=== PATIENT | female | born 1950 | race Caucasian/White ===

== ENCOUNTER 2017-11-17 14:58 | Emergency (ER) | payer OTHER ==
[2017-11-17 15:06] VITALS: BP 138/84; PULSE 76; TEMP 98.4; BMI 44.1
--- NOTE | 2017-11-17 15:48 | PDOC ---
History of Present Illness - General Chief Complaint: Diarrhea Stated Complaint: DIARRHEA Time Seen by Provider: 11/17/17 15:12 History Source: Patient Exam Limitations: No Limitations - History of Present Illness Travel History: No Initial Comments: 11/17/17 16:32 66 year old female with diarrhea since and September requiring her to see her PCP placing her on Levaquin, Flagyl, and antidiarrheal medication with minimal improvement presents with generalized mild weakness and continual diarrhea. Patient states was seen by Dr. Mercedes a few weeks ago who is recommending colonoscopy but patient states the physician feel she would operatives tolerate the prep secondary to present loose stool and generalized weakness. Patient denies fever, chills and states has had stool cultures, ova and paracenteses and C. difficile collected with negative results. Patient has no complaints presently except for generalized fatigue and diarrhea Timing/Duration: reports: intermittent Quality: reports: mild Pain Radiation: reports: no radiation Aggravating Factors: improves with: None Alleviating Factors: improves with: None Past History - Travel Traveled outside of the country in the last 30 days: No - Past Medical History Allergies/Adverse Reactions: Allergies Allergy/AdvReac Type Severity Reaction Status Date / Time No Known Allergies Allergy Verified 11/17/17 15:06 COPD: No Diabetes: Yes HTN: Yes - Surgical History Abdominal Surgery: Yes (hernia) - Suicide/Smoking/Psychosocial Hx Smoking History: Never smoked Patient Lives Alone: No Review of Systems - Review of Systems Able to Perform ROS?: No Constitutional: Yes: Weakness HEENTM: No: Symptoms Reported Respiratory: No: Symptoms reported Cardiac (ROS): No: Symptoms Reported ABD/GI: Yes: Diarrhea. No: Nausea, Poor Appetite, Poor Fluid Intake, Vomiting, Abdominal cramping Integumentary: No: Symptoms Reported Neurological: No: Symptoms reported Hematologic/Lymphatic: No: Symptoms Reported *Physical Exam - Vital Signs Last Vital Signs Temp Pulse Resp BP Pulse Ox 98.4 F 76 18 138/84 99 11/17/17 15:03 11/17/17 15:03 11/17/17 15:03 11/17/17 15:03 11/17/17 15:03 - Physical Exam General Appearance: Yes: Nourished, Appropriately Dressed. No: Apparent Distress HEENT: negative: Pale Conjunctivae Neck: positive: Supple Respiratory/Chest: positive: Lungs Clear, Normal Breath Sounds. negative: Respiratory Distress, Accessory Muscle Use Cardiovascular: positive: Regular Rhythm, Regular Rate. negative: Murmur Gastrointestinal/Abdominal: positive: Normal Bowel Sounds, Soft. negative: Distended, Tenderness Extremity: positive: Normal Capillary Refill. negative: Pedal Edema Integumentary: positive: Normal Color, Warm, Moist Neurologic: positive: Motor Strength 5/5 (ambulatory) ED Treatment Course - LABORATORY CBC & Chemistry Diagram: 11/17/17 16:14 11/17/17 16:14 Medical Decision Making - Medical Decision Making 11/17/17 16:00 Patient with intermittent daily diarrhea for the past 2 months. Patient is pending colonoscopy under Dr. Macias. Patient ordered for labs, urine, H pylori and repeat stool cultures. 11/17/17 17:52 Laboratory Tests 11/17/17 11/17/17 11/17/17 15:54 16:14 16:14 WBC 10.2 H Hgb 14.3 Hct 42.3 Absolute Neuts (auto) 6.0 Sodium 143 Potassium 4.7 Chloride 110 H Carbon Dioxide 23 Anion Gap 10 BUN 25 H Creatinine 1.2 H Creat Clearance w eGFR 44.81 Random Glucose 127 H Calcium 9.3 Magnesium 1.8 Total Bilirubin 0.2 AST 55 H ALT 70 Urine Nitrite Ur Leukocyte Esterase Urine WBC (Auto) Urine RBC (Auto) Stool H. pylori Ag Pending 11/17/17 17:00 WBC Hgb Hct Absolute Neuts (auto) Sodium Potassium Chloride Carbon Dioxide Anion Gap BUN Creatinine Creat Clearance w eGFR Random Glucose Calcium Magnesium Total Bilirubin AST ALT Urine Nitrite Negative Ur Leukocyte Esterase 3+ H Urine WBC (Auto) 85 Urine RBC (Auto) 6 Stool H. pylori Ag 11/17/17 18:[address] Mayo, product info specialist t and states is unaware patient coming to the ER for bowel prepping and is not on scheduled for a colonoscopy. Patient will be discharged home. Patient be given first dose of Macrobid here since her pharmacy is closed today prescription sent to begin tomorrow *DC/Admit/Observation/Transfer Diagnosis at time of Disposition: UTI (urinary tract infection), Diarrhea - Discharge Dispostion Disposition: HOME - Referrals Referrals: Shashank Staton MD [Primary Care Provider] - Angel Frances DO [Staff Physician] - - Patient Instructions Printed Discharge Instructions: DI for Urinary Tract Infection (UTI), DI for Diarrhea and Traveler's Diarrhea -- Adult Additional Instructions: Please take antibiotics starting tomorrow. Please call Dr. Frances in regards to days visit - Post Discharge Activity
--- NOTE | 2017-11-17 16:16 | PDOC ---
*Physical Exam - Vital Signs Last Vital Signs Temp Pulse Resp BP Pulse Ox 98.4 F 76 18 138/84 99 11/17/17 15:03 11/17/17 15:03 11/17/17 15:03 11/17/17 15:03 11/17/17 15:03 Medical Decision Making - Medical Decision Making 11/17/17 16:16 Case discussed with SIRIA Cruz. Plan as per [employer]. *DC/Admit/Observation/Transfer - Referrals Referrals: Shashank Staton MD [Primary Care Provider] - - Patient Instructions - Post Discharge Activity
[2017-11-17 16:43] LABS: BASO % 0.5 % (0-2.0); EOS % 2.3 % (0-4.5); HEMATOCRIT 42.3 % (32.4-45.2); HEMOGLOBIN 14.3 GM/dL (10.7-15.3); LYMPH % 28.5 % (8-40); MCH 30.8 pg (25.7-33.7); MCHC 33.7 g/dl (32.0-36.0); MEAN CELL VOLUME 91.6 fl (80-96); MEAN PLT VOLUME 9.6 fl (7.5-11.1); MONO % 9.9 % (3.8-10.2); NEUT % 58.8 % (42.8-82.8); PLATELET COUNT 303 K/MM3 (134-434); RBC 4.62 M/mm3 (3.60-5.2); RDW 14.3 % (11.6-15.6); WHITE BLOOD COUNT 10.2 K/mm3 (4.0-10.0)
[2017-11-17 17:09] LABS: ALBUMIN 3.9 g/dl (3.4-5.0); ALK PHOS 49 U/L (45-117); ANION GAP 10 MMOL/L (8-16); BILIRUBIN,TOTAL 0.2 mg/dL (0.2-1.0); BLOOD UREA NITROGEN 25 mg/dL (7-18); CALCIUM 9.3 mg/dL (8.5-10.1); CHLORIDE 110 mmol/L (98-107); CO2 23 mmol/L (21-32); CREATININE 1.2 mg/dL (0.55-1.02); GLUCOSE,RANDOM 127 mg/dL (74-106); LIPASE 174 U/L (73-393); SGPT/ALT 70 U/L (12-78); SODIUM 143 mmol/L (136-145); TOT PROT 7.2 g/dl (6.4-8.2)
[2017-11-17 17:12] LABS: MAGNESIUM 1.8 mg/dL (1.8-2.4); POTASSIUM 4.7 mmol/L (3.5-5.1); SGOT/AST 55 U/L (15-37)
[2017-11-17 17:14] LABS: URINE APPEARANCE SLCLOUDY; URINE BILIRUBIN NEGATIVE (<2.0 mg/dL); URINE COLOR YELLOW; URINE GLUCOSE (UA) NEGATIVE (NEGATIVE); URINE KETONE NEGATIVE (NEGATIVE); URINE NITRITE NEGATIVE (NEGATIVE); URINE PROTEIN NEGATIVE (NEGATIVE); URINE UROBILINOGEN NEGATIVE mg/dL (0.2-1.0)
[2017-11-17 17:15] LABS: URINE LEUK ESTERASE 3+ (NEGATIVE)
[2017-11-17 17:17] LABS: EPI CELLS RARE /HPF (FEW); URINE MUCUS RARE
[2017-11-17] MEDS ORDERED: NITROFURANTOIN MACROCRYSTAL 50 MG CAPSULE (FP) PO SCH (18:45)
[2017-11-17] MEDS ORDERED: NITROFURANTOIN MACROCRYSTAL 50 MG CAPSULE (FP) ONE (19:05)
--- NOTE | 2017-11-18 13:23 | EKG ---
Test Reason : Blood Pressure : / mmHG Vent. Rate : 073 BPM Atrial Rate : 073 BPM P-R Int : 152 ms QRS Dur : 080 ms QT Int : 400 ms P-R-T Axes : 051 002 033 degrees QTc Int : 440 ms NORMAL SINUS RHYTHM WITH SINUS ARRHYTHMIA POSSIBLE ANTERIOR INFARCT , AGE UNDETERMINED ABNORMAL ECG WHEN COMPARED WITH ECG OF 24-AUG-1999 08:58, NO SIGNIFICANT CHANGE WAS FOUND Confirmed by JAYLA DEMARCO MD ([id number]) on 11/18/2017 1:22:44 PM Referred By: Confirmed By:JAYLA DEMARCO MD
== END 2017-11-17 19:14 | disposition home or self-care (01) ==
LOC: JER 14:58
DX: N39.0 Urinary tract infection, site not specified (principal); R19.7 Diarrhea, unspecified; I10 Essential (primary) hypertension; E11.9 Type 2 diabetes mellitus without complications
CPT/HCPCS: 36415; 80053; 81003; 81015; 83690; 83735; 85025; 87045; 87046; 87086; 87338; 93005; 93010; 99281-25

== ENCOUNTER 2017-12-17 08:10 | Day surgery (SDC) | payer OTHER ==
[2017-12-17 08:54] VITALS: BMI 43.0
[2017-12-17 09:34] VITALS: TEMP 97.9
[2017-12-17 09:37] VITALS: PULSE 60
[2017-12-17 10:31] VITALS: BP 119/71
--- NOTE | 2017-12-19 09:57 | PATH ---
Surgical Pathology Report Patient Name: EBONIE SEN [facility]. Rec. #: [id number] /Age/Gender: 1950 (Age: 66) / F Account: [id number] Location: U-ENDOSCOPY Taken: 12/17/2017 Received: 12/17/2017 Reported: 12/19/2017 Physicians: Liang Frances D.O. Specimen(s) Received A: BX DUODENUM AND BULB B: BX BODY Clinical History Diarrhea Postoperative diagnosis: Gastritis, diarrhea Final Diagnosis A. DUODENUM AND BULB, BIOPSY: DUODENAL MUCOSA WITH MILD TO MODERATE ACUTE AND CHRONIC DUODENITIS. B. STOMACH, BODY, BIOPSY: GASTRIC BODY MUCOSA WITH MODERATE TO SEVERE CHRONIC ACTIVE GASTRITIS. IMMUNOHISTOCHEMICAL STAIN FOR H. PYLORI IS POSITIVE ([place]). Electronically Signed Allyson Campbell M.D. Gross Description A. Received in formalin, labeled "duodenum and bulb" are 5 santos, irregular portions of soft tissue measuring 0.1 and 0.2 cm. in greatest dimension. The specimens are submitted in toto in one cassette. B. Received in formalin, labeled "body of stomach" are multiple (>7) santos, irregular portions of soft tissue ranging in size from 0.1-0.3 cm. in greatest dimension. The specimens are submitted in toto in one cassette. MLSZ/12/17/2017 kenya/12/17/2017
[2017-12-20 16:30] LABS: ATYPICAL pANCA <1:20 titer (Neg:<1:20)
== END 2017-12-17 10:43 | disposition home or self-care (01) ==
LOC: JASU-ENDO 08:10
PROVIDERS: ATTEND Internal Medicine Gastroenterology
PROC: 0DB68ZX Excision of Stomach, Via Natural or Artificial Opening Endoscopic, Diagnostic (ICD-10-PCS; 2017-12-17)
PROC: 0DB98ZX Excision of Duodenum, Via Natural or Artificial Opening Endoscopic, Diagnostic (ICD-10-PCS; principal; 2017-12-17 09:00)
DX: K29.50 Unspecified chronic gastritis without bleeding (principal); K29.80 Duodenitis without bleeding; B96.81 Helicobacter pylori [H. pylori] as the cause of diseases classified elsewhere; I10 Essential (primary) hypertension; E11.9 Type 2 diabetes mellitus without complications; H40.9 Unspecified glaucoma
CPT/HCPCS: 36415; 86256; 86671; 88305-TC; 88342-TC

== ENCOUNTER 2018-02-19 09:42 | Day surgery (SDC) | payer OTHER ==
[2018-02-18 11:43] VITALS: BMI 42.8
[2018-02-19] MEDS ORDERED: MIDAZOLAM HCL 2 MG/2 ML SINGLE DOSE VIAL ONE (10:09)
[2018-02-19] MEDS ORDERED: LIDOCAINE HCL 2% (20ML MULTI-DOSE VIAL) NR ONE (10:25)
[2018-02-19 10:27] VITALS: TEMP 97.9
[2018-02-19 12:22] VITALS: BP 111/86; PULSE 61
[2018-02-19] MEDS ORDERED: oxyCODONE HCL 5 MG TABLET PO PRN (12:28)
[2018-02-19] MEDS ORDERED: ONDANSETRON 4 MG/2 ML VIAL IVPUSH PRN (12:28)
[2018-02-19] MEDS ORDERED: LACTATED RINGERS SOLUTION 1,000 ML IV SCH (12:30)
--- NOTE | 2018-02-20 11:14 | OP ---
DATE OF OPERATION: 02/19/2018 PREOPERATIVE DIAGNOSES: 1. Right carpal tunnel syndrome. 2. Right index trigger finger. POSTOPERATIVE DIAGNOSES: 1. Right carpal tunnel syndrome. 2. Right index trigger finger. OPERATIVE PROCEDURE: 1. Right carpal tunnel release. 2. Right index trigger finger release. SURGEON: Mark Tyler MD ANESTHESIA: Local with sedation. COMPLICATIONS: None. ESTIMATED BLOOD LOSS: Minimal. INDICATION FOR PROCEDURE: The patient is a 67-year-old female with the above finding indicated for operative treatment. Risks, benefits, and alternatives were discussed with the patient at length. Proper informed consent was obtained. PROCEDURE: After proper identification of patient and correct operative site, patient was brought to the operating room and placed supine on the operative table. Prominences were well padded. Sedation and local anesthesia were given. Right upper extremity was prepped and draped in usual sterile fashion. A well-padded tourniquet was placed as well as a sterile prep. Esmarch bandage was used to exsanguinate the right upper extremity. Tourniquet was inflated to 250 mmHg. A longitudinal incision was made in the proximal aspect of the palm. Incision was taken sharply through the skin with blunt and sharp dissection through the subcutaneous tissues. Palmar fascia was divided longitudinally. Transcarpal ligament was divided longitudinally along with the distal 4 cm of the antebrachial fascia under direct visualization with loupe magnification. This provided complete release of the median nerve at the wrist. Wound was irrigated with saline, repaired with a 5-0 nylon suture. Second incision was made over the A1 jalen to the index finger. Incision was taken sharply through the skin with blunt dissection down to the A1 jalen. The A1 jalen was identified and divided longitudinally. Patient was asked to flex and extend her finger. No further triggering was noted. Wound was irrigated and repaired with 5-0 nylon suture. Sterile dressings were applied. Patient was brought to the recovery room in stable condition. She tolerated procedure well. MARK TYLER M.D. [id number]
== END 2018-02-19 12:23 | disposition home or self-care (01) ==
LOC: FASU 09:42
PROVIDERS: ATTEND Orthopaedic Surgery Hand Surgery
PROC: 01N50ZZ Release Median Nerve, Open Approach (ICD-10-PCS; 2018-02-19)
PROC: 0LN70ZZ Release Right Hand Tendon, Open Approach (ICD-10-PCS; principal; 2018-02-19 11:23)
DX: G56.01 Carpal tunnel syndrome, right upper limb (principal); M65.321 Trigger finger, right index finger; I10 Essential (primary) hypertension; E11.9 Type 2 diabetes mellitus without complications; Z79.84 Long term (current) use of oral hypoglycemic drugs
CPT/HCPCS: 82962

== ENCOUNTER 2018-04-07 10:43 | Emergency (ER) | payer OTHER ==
[2018-04-07 10:59] VITALS: BMI 44.1
--- NOTE | 2018-04-07 11:53 | PDOC ---
History of Present Illness - General Chief Complaint: Pain Stated Complaint: ABD PAIN Time Seen by Provider: 04/07/18 11:43 History Source: Patient - History of Present Illness Timing/Duration: reports: other Quality: reports: severe Past History - Past Medical History Allergies/Adverse Reactions: Allergies Allergy/AdvReac Type Severity Reaction Status Date / Time No Known Allergies Allergy Verified 04/07/18 10:51 Home Medications: Ambulatory Orders Amlodipine Besylate [Norvasc -] 10 mg PO HS 11/22/17 Aspirin Coated [Ecotrin -] 81 mg PO DAILY 11/22/17 Atropine 1% Ophth. Solution - 0 drop .ROUTE DAILY 11/22/17 Clopidogrel Bisulfate [Plavix] 75 mg PO DAILY 11/22/17 Cyclosporine [Restasis] 1 each OP DAILY 11/22/17 Dorzolamide HCl/Timolol Maleat [Cosopt Eye Drops] 10 ml OP DAILY 11/22/17 Duloxetine HCl [Cymbalta] 60 mg PO DAILY 11/22/17 Gabapentin [Neurontin] 1,200 mg PO DAILY 11/22/17 Losartan Potassium [Cozaar] 100 mg PO DAILY 11/22/17 Metoprolol Succinate [Toprol Xl] 100 mg PO DAILY 11/22/17 Multivitamin [Daily Multiple Vitamin] 1 each PO DAILY 11/22/17 Travoprost [Travatan Z] 1 dose .ROUTE DAILY 11/22/17 metFORMIN HCL [Metformin ER Osmotic] 1,000 mg PO BID 11/22/17 Anemia: No Asthma: No Cancer: No (blood clot left retinal artery many years ago) Cardiac Disorders: No CVA: No COPD: No CHF: No Dementia: No Diabetes: Yes (NIDDM) GI Disorders: No Disorders: No HTN: Yes Hypercholesterolemia: No Liver Disease: No Seizures: No Thyroid Disease: No - Surgical History Abdominal Surgery: Yes (hernia repair) Appendectomy: No Cardiac Surgery: No Cholecystectomy: No Lung Surgery: No Neurologic Surgery: No Orthopedic Surgery: Yes (BilateralTHR) - Immunization History Immunization Up to Date: Yes - Suicide/Smoking/Psychosocial Hx Smoking History: Former smoker Have you smoked in the past 12 months: No If you are a former smoker, when did you quit?: 15 YRS AGO Information on smoking cessation initiated: No Hx Alcohol Use: No Drug/Substance Use Hx: No Substance Use Type: None Hx Substance Use Treatment: No Review of Systems - Review of Systems Constitutional: No: Chills, Fever ABD/GI: Yes: Constipated, Abdominal cramping. No: Diarrhea, Nausea, Rectal Bleeding, Vomiting, Tarry Stools : No: Dysuria *Physical Exam - Vital Signs Last Vital Signs Temp Pulse Resp BP Pulse Ox 70 20 157/69 97 04/07/18 10:51 04/07/18 10:51 04/07/18 10:51 04/07/18 10:51 - Physical Exam General Appearance: Yes: Appropriately Dressed, Mild Distress HEENT: positive: Normal Voice Neck: positive: Supple Respiratory/Chest: negative: Respiratory Distress Gastrointestinal/Abdominal: positive: Soft, Hernia (large umbilical hernia w/ significant ttp w/ mild palpation, unable to asssess if reducible) Musculoskeletal: negative: CVA Tenderness Integumentary: positive: Dry, Warm Neurologic: positive: Fully Oriented, Alert, Normal Mood/Affect Moderate Sedation - Procedure Monitoring Vital Signs: Procedure Monitoring Vital Signs Temperature Pulse Rate 70 04/07/18 10:51 Respiratory Rate 20 04/07/18 10:51 Blood Pressure 157/69 04/07/18 10:51 O2 Sat by Pulse Oximetry (%) 97 04/07/18 10:51 ED Treatment Course - LABORATORY CBC & Chemistry Diagram: 04/07/18 12:20 04/07/18 12:20 Medical Decision Making - Medical Decision Making 04/07/18 11:48 67 yo F, NIDDM, ventral hernia, currently on triple therapy for hpylori that was dx x 1 week, here w/ worsening lower abd cramping w/ constipation x 4 days. No BRBPR, melena, n/v/f/c, States she was told by Dr Hercules of GI to come to ED for eval. Pt states she saw a surgeon recently to discuss elective repair of her hernia and that Abi told her that she will need to have surgery soon per patient See exam R/o incarcerated hernia -pain control -IVF -labs -CT -anticipate admission 04/07/18 12:09 04/07/18 15:[address] pending. Of note, Pt's GFR 44 w/ Cr 1.2. Risk/benefit of administering IV contrast d/w pt who signed consent in my presence for IV administration 04/07/18 17:43 CT read as no significant change in hernia site with fat and part of mid transverse colon seen within hernia. No stranding or mesenteric fat. There is also a wide open hernia defect measuring about 3.5 cm. "There is a significant discrepancy in the amount of fecal debris seen prior to and post hernia w/ a moderate amount seen prior to the hernia and only a small amount distal to the hernia, unable to r/o partial obstruction. Pt does report being able to have a bowel movement in ED after hernia was reduced doing CAT scan. Will c/w surgery at this time 04/07/18 18:[address] Shyam Raymundo of surgery, who patient saw in the office within the past [address] report d/w who strongly recommends that due to pt's complicated hernia that she has a team approach to her procedure. States patient was seen by a plastic surgeon who MD referred pt to, and that pt now waiting for insurance approval for procedure. States if patient can be discharged, should continue to follow-up with him tomorrow. I discussed this with patient and also offered her observation or transfer, to which patient declines at this time. Patient states she would prefer for Dr. Raymundo to perform the procedure and feels comfortable going home to follow-up with M.D. Patient states since hernia was reduced in CAT scan she's had multiple bowel movements with no pain at this time. Pt has since been able to tolerate po. Patient was counseled on strict return precautions such as recurrent pain, constipation, blood in stool, nausea, vomiting or fever. *DC/Admit/Observation/Transfer Diagnosis at time of Disposition: Umbilical hernia Qualifiers: Obstruction and gangrene presence: without obstruction or gangrene Qualified Code(s): K42.9 - Umbilical hernia without obstruction or gangrene Abdominal pain Qualifiers: Abdominal location: unspecified location Qualified Code(s): R10.9 - Unspecified abdominal pain - Discharge Dispostion Disposition: HOME Condition at time of disposition: Improved - Referrals Referrals: Shashank Staton MD [Primary Care Provider] - - Patient Instructions Additional Instructions: The CAT scan showed a large hernia defect with some loops of bowels and most likely explains your constipation This is a complicated hernia and requires surgical intervention in the very near future We have discussed this with your surgeon whose preference is that you have a team approach to this procedure w/ the addition of a plastic surgeon who you have already consulted with Please follow up with your surgeons in the am If pain recurs and/or you developed recurrent constipation, nausea, vomiting or fever, please call 911 and return immediately - Post Discharge Activity
[2018-04-07 12:30] LABS: BASO % 0.8 % (0-2.0); HEMATOCRIT 42.8 % (32.4-45.2); HEMOGLOBIN 14.8 GM/dL (10.7-15.3); LYMPH % 17.9 % (8-40); MCH 32.1 pg (25.7-33.7); MCHC 34.7 g/dl (32.0-36.0); MEAN CELL VOLUME 92.5 fl (80-96); MEAN PLT VOLUME 8.7 fl (7.5-11.1); MONO % 6.9 % (3.8-10.2); NEUT % 72.4 % (42.8-82.8); PLATELET COUNT 301 K/MM3 (134-434); RBC 4.63 M/mm3 (3.60-5.2); RDW 13.3 % (11.6-15.6); WHITE BLOOD COUNT 12.2 K/mm3 (4.0-10.0)
[2018-04-07] MEDS ORDERED: morphine CARPU-JECT 4 MG/1 ML DISP.SYRIN IVPUSH ONE (12:45)
[2018-04-07] MEDS ORDERED: SODIUM CHLORIDE 500 ML IV STA (12:46)
[2018-04-07 13:06] LABS: ALBUMIN 4.3 g/dl (3.4-5.0); ALK PHOS 50 U/L (45-117); ANION GAP 9 MMOL/L (8-16); BILIRUBIN,TOTAL 0.5 mg/dL (0.2-1); BLOOD UREA NITROGEN 25 mg/dL (7-18); CALCIUM 9.8 mg/dL (8.5-10.1); CHLORIDE 103 mmol/L (98-107); CO2 26 mmol/L (21-32); CREATININE 1.2 mg/dL (0.55-1.3); GLUCOSE,RANDOM 113 mg/dL (74-106); POTASSIUM 4.8 mmol/L (3.5-5.1); SGOT/AST 30 U/L (15-37); SGPT/ALT 36 U/L (13-61); SODIUM 137 mmol/L (136-145); TOT PROT 7.8 g/dl (6.4-8.2)
[2018-04-07] MEDS ORDERED: morphine SULFATE 4 MG/ML VIAL ONE (13:24)
--- NOTE | 2018-04-07 15:23 | PDOC ---
*Physical Exam - Vital Signs Last Vital Signs Temp Pulse Resp BP Pulse Ox 70 20 157/69 97 04/07/18 10:51 04/07/18 10:51 04/07/18 10:51 04/07/18 10:51 - Physical Exam General Appearance: Yes: Nourished Neck: positive: Trachea midline Respiratory/Chest: positive: Lungs Clear, Normal Breath Sounds Cardiovascular: positive: Regular Rate, S1, S2, Edema Gastrointestinal/Abdominal: positive: Normal Bowel Sounds, Tender (tender over large ventral hernia. no rebound no guarding.) Musculoskeletal: positive: Normal Inspection. negative: CVA Tenderness, CVA Tenderness (R) Extremity: positive: Normal Capillary Refill, Normal Inspection Integumentary: positive: Normal Color, Dry, Warm Neurologic: positive: Fully Oriented, Alert, Normal Mood/Affect ED Treatment Course - LABORATORY CBC & Chemistry Diagram: 04/07/18 12:20 04/07/18 12:20 - ADDITIONAL ORDERS Additional order review: Laboratory Results 04/07/18 04/07/18 12:20 12:20 Sodium 137 Potassium 4.8 Chloride 103 Carbon Dioxide 26 Anion Gap 9 BUN 25 H Creatinine 1.2 Creat Clearance w eGFR 44.68 Random Glucose 113 H Calcium 9.8 Total Bilirubin 0.5 AST 30 ALT 36 Alkaline Phosphatase 50 Total Protein 7.8 Albumin 4.3 Blood Type A POSITIVE Antibody Screen Negative 04/07/18 12:20 RBC 4.63 MCV 92.5 MCHC 34.7 RDW 13.3 MPV 8.7 Neutrophils % 72.4 D Lymphocytes % 17.9 D Monocytes % 6.9 Eosinophils % 2.0 Basophils % 0.8 - Medications Given in the ED: ED Medications Discontinued Medications Generic Name Dose Route Start Last Admin Trade Name Freq PRN Reason Stop Dose Admin Sodium Chloride 500 mls @ 500 mls/hr 04/07/18 12:46 04/07/18 13:26 Normal Saline - IV 04/07/18 13:45 500 mls/hr ASDIR STA Administration Morphine Sulfate 4 mg 04/07/18 12:45 04/07/18 13:26 Morphine Injection - IVPUSH 04/07/18 12:46 4 mg ONCE ONE Administration Medical Decision Making - Medical Decision Making 67 yo F pt of dr pino here wtih /o recently diagnosed h pylori, ventral hernia, here with c/o lower abd pain. no n/v but does have constipation. hasn't had bm in 3 days. pain is constant, worse with pressure over the hernia. did see a surgeon dr Vega, one week ago. pain is severe, no mod factors. on exam pt with large hernia, nonreducible, ttp over hernia. differential constipation, mass, hernia, sbo debbie cl, plan labs ct w/p pt seen and examined with JOHN Pereyra, agree with her assessment and plan. 04/07/18 15:21 *DC/Admit/Observation/Transfer - Referrals Referrals: Shashank Staton MD [Primary Care Provider] - - Patient Instructions - Post Discharge Activity
[2018-04-07 16:09] LABS: URINE APPEARANCE SLCLOUDY; URINE BILIRUBIN NEGATIVE (<2.0 mg/dL); URINE COLOR YELLOW; URINE GLUCOSE (UA) NEGATIVE (NEGATIVE); URINE KETONE NEGATIVE (NEGATIVE); URINE LEUK ESTERASE 2+ (NEGATIVE); URINE NITRITE NEGATIVE (NEGATIVE); URINE PROTEIN NEGATIVE (NEGATIVE); URINE UROBILINOGEN NEGATIVE mg/dL (0.2-1.0)
[2018-04-07 16:43] LABS: EPI CELLS RARE /HPF (FEW); URINE MUCUS RARE
[2018-04-07 18:56] VITALS: BP 142/77; PULSE 64
== END 2018-04-07 18:54 | disposition home or self-care (01) ==
LOC: JER 10:43
PROC: 3E033NZ Introduction of Analgesics, Hypnotics, Sedatives into Peripheral Vein, Percutaneous Approach (ICD-10-PCS; principal; 2018-04-07)
DX: K42.9 Umbilical hernia without obstruction or gangrene (principal); I10 Essential (primary) hypertension; E11.9 Type 2 diabetes mellitus without complications; Z79.84 Long term (current) use of oral hypoglycemic drugs
CPT/HCPCS: 36415; 74177-TC; 80053; 81003; 81015; 85025; 86850; 86900; 86901; 96374; 99282-25

== ENCOUNTER 2019-03-30 11:07 | Day surgery (SDC) | payer OTHER ==
[2019-03-30 11:42] LABS: HEMATOCRIT 41.9 % (32.4-45.2); MCH 31.5 pg (25.7-33.7); MCHC 33.5 g/dl (32.0-36.0); MEAN PLT VOLUME 8.3 fl (7.5-11.1); PLATELET COUNT 280 K/MM3 (134-434); RBC 4.46 M/mm3 (3.60-5.2); RDW 14.2 % (11.6-15.6); WHITE BLOOD COUNT 9.4 K/mm3 (4.0-10.0)
[2019-03-30 11:56] LABS: INR 0.9 (0.83-1.09); PROTHROMBIN TIME (PATIENT) 10.6 SEC (9.7-13.0)
[2019-03-30 11:59] LABS: ACTIVATED PTT 30.2 SECONDS (25.2-36.5)
[2019-03-30 12:02] LABS: BLOOD UREA NITROGEN 43.8 mg/dL (7-18); CALCIUM 10.1 mg/dL (8.5-10.1); CREATININE 1.6 mg/dL (0.55-1.3); POTASSIUM 4.9 mmol/L (3.5-5.1)
[2019-03-30 12:07] VITALS: BMI 49.8
[2019-03-30] MEDS ORDERED: LIDOCAINE VISCOUS 2% ORAL/TOP 20 ML UNIT-DOSE CUP ONE (12:25)
[2019-03-30 13:29] VITALS: TEMP 97.8
[2019-03-30 13:47] VITALS: PULSE 60
[2019-03-30 14:27] VITALS: BP 104/49
--- NOTE | 2019-03-30 15:34 | ECHO ---
Name: FRANCY, EBONIE Exam:Transesophageal Echocardiogram Study Date: 03/30/2019 12:54 PM Age: 68 yrs Height: 67 in Weight: 310 lb BSA: 2.4 m2 Procedure: A 2D transesophageal echocardiogram with color flow Doppler was performed. Informed consent for Transesophageal Echocardiogram, and use of a contrast agent as needed, was obtained prior to the proc edure. The patient was brought to the endoscopy suite in a fasting state. An intravenous line was placed. A topical anesthetic agent was used for oropharangeal anesthesia. A bite block was inserted. IV concious sedati on was administered using propafol. A multifrequency, multiplane transesopheageal echocardiographic endoscop e was inserted and manipulated in the standard fashion to achieve multiplane views. The usual views were ob tained; basal, mid-esophageal, transgastric and aortic views. The patient's vital signs, including blood pres sure, heart rate, pulse oximetry and cardiac rhythm were monitored throughout the procedure and remained st able. The patient tolerated the procedure well without evidence of orophangeal or esophageal trauma. There were no complications. The patient was in normal sinus rhythm during the exam. Left Ventricle The left ventricle is normal in size. Left ventricular systolic function is normal. No regional wall motion abnormalities noted. Atria The left atrial size is normal. No left atrial mass or thrombus visualized. No thrombus is detected i n the left atrial appendage. Injection of contrast documented no interatrial shunt. Mitral Valve There is mild to moderate mitral annular calcification. There is mild to moderate mitral regurgitatio n. The mitral regurgitant jet is eccentrically directed. Tricuspid Valve The tricuspid valve is not well visualized, but is grossly normal. There is mild to moderate tricuspi d regurgitation. Aortic Valve The aortic valve is trileaflet. The aortic valve opens well. The aortic valve is normal in structure and function. No aortic regurgitation is present. Pulmonic Valve The pulmonic valve is not well visualized. There is no pulmonic valvular regurgitation. Great Vessels Small atherosclerotic plaque is seen at the distal aortic arch. There is aortic root sclerosis/calcif ication. Small calciffied plaque is seen at the aortic root at sinotubular junction. The aortic root is normal size. Pericardium/Pluera There is no pericardial effusion. Interpretation Summary The left ventricle is normal in size. Left ventricular systolic function is normal. No regional wall motion abnormalities noted. The left atrial size is normal. No left atrial mass or thrombus visualized. No thrombus is detected in the left atrial appendage. Injection of contrast documented no interatrial shunt. There is mild to moderate mitral annular calcification. There is mild to moderate mitral regurgitation. The mitral regurgitant jet is eccentrically directed. There is mild to moderate tricuspid regurgitation. The aortic valve is normal in structure and function. Small atherosclerotic plaque is seen at the distal aortic arch There is aortic root sclerosis/calcification. Small calciffied plaque is seen at the aortic root at sinotubular junction The aortic root is normal size. There is no pericardial effusion. Matthew Argueta MD 03/30/2019 03:34 PM
== END 2019-03-30 14:43 | disposition home or self-care (01) ==
LOC: JASU-ENDO 11:07
PROVIDERS: ATTEND Internal Medicine Cardiovascular Disease
PROC: B246ZZ4 Ultrasonography of Right and Left Heart, Transesophageal (ICD-10-PCS; principal; 2019-03-30 12:30)
DX: I74.9 Embolism and thrombosis of unspecified artery (principal); I10 Essential (primary) hypertension; E66.01 Morbid (severe) obesity due to excess calories; J44.9 Chronic obstructive pulmonary disease, unspecified
CPT/HCPCS: 36415; 80048; 85027; 85610; 85730; 93312; 93325

== ENCOUNTER 2020-02-20 16:41 | Inpatient (IN) | payer OTHER ==
[2020-02-20] MEDS ORDERED: DEXAMETHASONE SOD PHOSPHATE 4 MG/1 ML VIAL IVPUSH ONE (17:53)
[2020-02-20] MEDS ORDERED: DEXAMETHASONE SOD PHOSPHATE 10 MG/1 ML VIAL ONE (17:58)
[2020-02-20 18:24] LABS: BASO % 0.5 % (0-2.0); EOS % 0.1 % (0-4.5); HEMATOCRIT 46.7 % (32.4-45.2); HEMOGLOBIN 15.6 GM/dL (10.7-15.3); LYMPH % 8.2 % (8-40); MCH 31.4 pg (25.7-33.7); MCHC 33.5 g/dl (32.0-36.0); MEAN CELL VOLUME 93.8 fl (80-96); MEAN PLT VOLUME 8.9 fl (7.5-11.1); MONO % 10.2 % (3.8-10.2); PLATELET COUNT 381 K/MM3 (134-434); RBC 4.97 M/mm3 (3.60-5.2); RDW 14.2 % (11.6-15.6); WHITE BLOOD COUNT 10.3 K/mm3 (4.0-10.0)
[2020-02-20 18:31] LABS: VENOUS BASE EXCESS 0.1 mmol/L (-2-2); VENOUS O2 SATURATION 38.9 % (70-80); VENOUS PCO2 49.9 mmHg (38-52); VENOUS PH 7.346 (7.310-7.410)
[2020-02-20 18:33] LABS: INR 1.21 (0.83-1.09); PROTHROMBIN TIME (PATIENT) 14.8 SEC (9.7-13.0)
[2020-02-20 18:35] LABS: ACTIVATED PTT 29.2 SECONDS (25.2-36.5); CHLORIDE 98 mmol/L (98-107); POTASSIUM 4.3 mmol/L (3.5-5.1); SODIUM 137 mmol/L (136-145)
[2020-02-20 18:38] LABS: ALBUMIN 3.3 g/dl (3.4-5.0); ANION GAP 12 MMOL/L (8-16); BLOOD UREA NITROGEN 19.4 mg/dL (7-18); CALCIUM 9.4 mg/dL (8.5-10.1); CO2 26 mmol/L (21-32); GLUCOSE,RANDOM 187 mg/dL (74-106)
[2020-02-20 18:41] LABS: BILIRUBIN,DIRECT 0.5 mg/dL (0.0-0.2); CREATININE 1.3 mg/dL (0.55-1.3); SGOT/AST 39 U/L (15-37); SGPT/ALT 30 U/L (13-61)
[2020-02-20 18:42] LABS: LDH 532 U/L (84-246)
[2020-02-20 18:43] LABS: BILIRUBIN,TOTAL 0.8 mg/dL (0.2-1); TOT PROT 7.6 g/dl (6.4-8.2)
[2020-02-20 18:44] LABS: ALK PHOS 41 U/L (45-117)
[2020-02-20 21:23] LABS: ALLENS TEST POSITIVE; ARTERIAL BLD GAS O2 SATURATION 96.8 mmHg (95-98); ARTERIAL BLOOD GAS BASE EXCESS -0.4 mmol/L (-2-2); ARTERIAL BLOOD GAS PO2 89.1 mmHg (80-100); ARTERIAL BLOOD GAS pH 7.397 (7.350-7.450)
[2020-02-20 21:26] LABS: VENT MODE A/C; VENT RATE 28
[2020-02-20] MEDS ORDERED: D5-1/2NS+20 MEQ KCL - 20 MEQ/1,000 ML INFUS.BAG IV SCH (22:00)
[2020-02-20] MEDS ORDERED: SODIUM CHLORIDE 1,000 ML IV STA (22:02)
[2020-02-20] MEDS ORDERED: CEFTRIAXONE 1 GM in DEXTROSE 5%-WATER - 50 ML IVPB ONE (23:20)
[2020-02-20] MEDS ORDERED: AZITHROMYCIN IVPB 500 MG/250 ML BAG IVPB ONE (23:30)
[2020-02-21] MEDS ORDERED: DEXTROSE 5%-WATER - 50 ML IVPB ONE ×2 (02:38→09:41)
[2020-02-21] MEDS ORDERED: cefTRIAXone SODIUM 1 GM VIAL ONE ×2 (02:38→09:40)
[2020-02-21] MEDS ORDERED: INSULIN SLIDING SCALE (NOVOLOG) 1 VIAL SQ SCH (07:00)
[2020-02-21] MEDS: INSULIN SLIDING SCALE (NOVOLOG) 1 VIAL SQ SCH ×3 (07:21→17:32)
[2020-02-21 07:45] LABS: POTASSIUM 4.8 mmol/L (3.5-5.1)
[2020-02-21 07:48] LABS: ALBUMIN 2.7 g/dl (3.4-5.0); BLOOD UREA NITROGEN 24.5 mg/dL (7-18); CALCIUM 8.8 mg/dL (8.5-10.1); MAGNESIUM 1.7 mg/dL (1.8-2.4)
[2020-02-21 07:51] LABS: CREATININE 1.2 mg/dL (0.55-1.3)
[2020-02-21 07:52] LABS: PHOSPHOROUS 3.4 mg/dL (2.5-4.9)
[2020-02-21 07:53] LABS: BILIRUBIN,TOTAL 0.5 mg/dL (0.2-1); TOT PROT 6.5 g/dl (6.4-8.2)
[2020-02-21] MEDS ORDERED: DULoxetine HCL 30 MG CAPSULE.DR PO ONE (09:40)
[2020-02-21] MEDS ORDERED: PT OWN MED DRAWER 7, Y5N ONE (09:41)
[2020-02-21] MEDS: ZINC SULFATE 220 MG CAPSULE (FP) PO SCH (09:46)
[2020-02-21] MEDS: MULTIVITAMINS (DAILY MVI) TABLET (FP) PO SCH (09:47)
[2020-02-21] MEDS: GABAPENTIN 300 MG CAPSULE PO SCH ×2 (09:48→23:52)
[2020-02-21] MEDS: ASPIRIN COATED 81 MG TABLET.EC PO SCH (09:48)
[2020-02-21] MEDS: CHOLECALCIFEROL (VIT D3) 1,000 UNIT (25 MCG) TABLET PO SCH (09:48)
[2020-02-21] MEDS: ASCORBIC ACID 500 MG TABLET (FP) PO SCH ×2 (09:48→23:52)
[2020-02-21] MEDS: amLODIPine BESYLATE 10 MG TABLET (FP) PO SCH (09:49)
[2020-02-21] MEDS: CLOPIDOGREL BISULFATE 75 MG TABLET (FP) PO SCH (09:49)
[2020-02-21] MEDS: PANTOPRAZOLE SODIUM 40 MG VIAL IVPUSH SCH (09:51)
[2020-02-21] MEDS: DEXAMETHASONE SOD PHOSPHATE 4 MG/1 ML VIAL IVPUSH SCH (09:52)
[2020-02-21] MEDS: ENOXAPARIN NA (PORCINE) 40 MG/0.4 ML DISP.SYRIN SQ SCH (09:52)
[2020-02-21] MEDS ORDERED: DULoxetine HCL 60 MG CAPSULE.DR PO SCH (10:00)
[2020-02-21] MEDS ORDERED: CHOLECALCIFEROL (VIT D3) 1,000 UNIT (25 MCG) TABLET PO SCH (10:00)
[2020-02-21] MEDS ORDERED: PATIENT'S OWN MEDICATION (NON-FORMULARY) (Dorzolamide Hcl/Timolol Maleat [Cosopt Eye Drops OU SCH (10:00)
[2020-02-21] MEDS: AZITHROMYCIN IVPB 250 MG in DEXTROSE 5%-WATER - 250 ML IVPB SCH (10:09)
[2020-02-21] MEDS: TIMOLOL 0.5% OPHTHALMIC SOL 5 ML BOTTLE OU SCH ×2 (10:10→23:52)
[2020-02-21] MEDS: DORZOLAMIDE 2% HCL OPHTHALMIC SOLUTION 10 ML BOTTLE OU SCH ×2 (10:12→23:52)
[2020-02-21] MEDS: TIOTROPIUM BROMIDE 2.5 MCG (SPIRIVA) RESPIMAT INHALER IH SCH (10:14)
[2020-02-21] MEDS: CEFTRIAXONE 1 GM in DEXTROSE 5%-WATER - 50 ML IVPB SCH (10:15)
[2020-02-21 12:25] LABS: MCH 31.9 pg (25.7-33.7); MCHC 34.1 g/dl (32.0-36.0); MEAN CELL VOLUME 93.7 fl (80-96); PLATELET COUNT 356 K/MM3 (134-434); RBC 4.38 M/mm3 (3.60-5.2); RDW 14.1 % (11.6-15.6); WHITE BLOOD COUNT 10.6 K/mm3 (4.0-10.0)
[2020-02-21 12:32] LABS: INR 1.23 (0.83-1.09); PROTHROMBIN TIME (PATIENT) 14.8 SEC (9.7-13.0)
[2020-02-21 12:35] LABS: ACTIVATED PTT 26.6 SECONDS (25.2-36.5)
[2020-02-21 13:08] LABS: ERYTHROCYTE SEDIMENTATION RATE 72 mm/hr (0-30)
[2020-02-21 22:43] LABS: EPI CELLS >36 /uL (0-25.1); HYALINE CASTS 10 /uL (0-3.1); PH,URINE 5.5 (5.0-8.0); URINE APPEARANCE CLOUDY; URINE BACTERIA 9 /uL (0-1359); URINE BILIRUBIN NEGATIVE (NEGATIVE); URINE COLOR DK YELLOW; URINE GLUCOSE (UA) NEGATIVE (NEGATIVE); URINE KETONE NEGATIVE (NEGATIVE); URINE LEUK ESTERASE 2+ (NEGATIVE); URINE NITRITE NEGATIVE (NEGATIVE); URINE PROTEIN 2+ (NEGATIVE); URINE WBC 227 /uL (0-25.8)
[2020-02-21 23:16] LABS: YEAST NEGATIVE (NEGATIVE)
[2020-02-21 23:22] LABS: URINE CRYSTALS FEW /hpf
[2020-02-21] MEDS: LATANOPROST 0.005% OPHTH SOLN 2.5ML BOTTLE OU SCH (23:52)
[2020-02-21] MEDS: FENOFIBRIC ACID 135 MG CAP PO SCH (23:52)
[2020-02-21] MEDS: LOSARTAN POTASSIUM 50 MG TABLET PO SCH (23:55)
[2020-02-21] MEDS: DOXAZOSIN MESYLATE 4 MG TABLET PO SCH (23:55)
[2020-02-22] MEDS: INSULIN SLIDING SCALE (NOVOLOG) 1 VIAL SQ SCH ×4 (06:37→22:47)
[2020-02-22 07:16] LABS: POTASSIUM 4.8 mmol/L (3.5-5.1)
[2020-02-22 07:19] LABS: ALBUMIN 2.4 g/dl (3.4-5.0); BLOOD UREA NITROGEN 29.2 mg/dL (7-18); CALCIUM 8.7 mg/dL (8.5-10.1); MAGNESIUM 1.9 mg/dL (1.8-2.4)
[2020-02-22 07:24] LABS: PHOSPHOROUS 3.4 mg/dL (2.5-4.9)
[2020-02-22 07:25] LABS: BILIRUBIN,TOTAL 0.5 mg/dL (0.2-1); TOT PROT 6.1 g/dl (6.4-8.2)
[2020-02-22 07:49] LABS: BASO % 0.2 % (0-2.0); EOS % 0.1 % (0-4.5); HEMATOCRIT 50.6 % (32.4-45.2); HEMOGLOBIN 16.5 GM/dL (10.7-15.3); LYMPH % 7.3 % (8-40); MCHC 32.6 g/dl (32.0-36.0); MEAN CELL VOLUME 95.1 fl (80-96); MEAN PLT VOLUME 9.4 fl (7.5-11.1); MONO % 9.9 % (3.8-10.2); NEUT % 82.5 % (42.8-82.8); PLATELET COUNT 164 K/MM3 (134-434); RBC 5.32 M/mm3 (3.60-5.2); RDW 14.9 % (11.6-15.6); WHITE BLOOD COUNT 9.2 K/mm3 (4.0-10.0)
[2020-02-22] MEDS ORDERED: DEXTROSE 5%-WATER - 50 ML IVPB ONE (09:27)
[2020-02-22] MEDS ORDERED: cefTRIAXone SODIUM 1 GM VIAL ONE (09:27)
[2020-02-22] MEDS ORDERED: PT OWN MED DRAWER 7, Y5N ONE ×3 (09:28→21:36)
[2020-02-22] MEDS: AZITHROMYCIN IVPB 250 MG in DEXTROSE 5%-WATER - 250 ML IVPB SCH (10:30)
[2020-02-22] MEDS: TIMOLOL 0.5% OPHTHALMIC SOL 5 ML BOTTLE OU SCH ×2 (10:30→22:37)
[2020-02-22] MEDS: TIOTROPIUM BROMIDE 2.5 MCG (SPIRIVA) RESPIMAT INHALER IH SCH (10:30)
[2020-02-22] MEDS: GABAPENTIN 300 MG CAPSULE PO SCH ×2 (10:30→22:37)
[2020-02-22] MEDS: MULTIVITAMINS (DAILY MVI) TABLET (FP) PO SCH (10:30)
[2020-02-22] MEDS: CHOLECALCIFEROL (VIT D3) 1,000 UNIT (25 MCG) TABLET PO SCH (10:30)
[2020-02-22] MEDS: DULoxetine HCL 30 MG CAPSULE.DR PO SCH (10:30)
[2020-02-22] MEDS: ZINC SULFATE 220 MG CAPSULE (FP) PO SCH (10:30)
[2020-02-22] MEDS: DORZOLAMIDE 2% HCL OPHTHALMIC SOLUTION 10 ML BOTTLE OU SCH ×2 (10:30→22:37)
[2020-02-22] MEDS: DEXAMETHASONE SOD PHOSPHATE 4 MG/1 ML VIAL IVPUSH SCH (10:30)
[2020-02-22] MEDS: ASCORBIC ACID 500 MG TABLET (FP) PO SCH ×2 (10:30→22:37)
[2020-02-22] MEDS: PANTOPRAZOLE SODIUM 40 MG VIAL IVPUSH SCH (10:30)
[2020-02-22] MEDS: CLOPIDOGREL BISULFATE 75 MG TABLET (FP) PO SCH (10:30)
[2020-02-22] MEDS: amLODIPine BESYLATE 10 MG TABLET (FP) PO SCH (10:30)
[2020-02-22] MEDS: ASPIRIN COATED 81 MG TABLET.EC PO SCH (10:30)
[2020-02-22] MEDS: CEFTRIAXONE 1 GM in DEXTROSE 5%-WATER - 50 ML IVPB SCH (12:00)
[2020-02-22] MEDS: ENOXAPARIN NA (PORCINE) 40 MG/0.4 ML DISP.SYRIN SQ SCH (12:01)
[2020-02-22] MEDS ORDERED: REMDESIVIR 200 MG in SODIUM CHLORIDE 210 ML IVPB ONE (15:00)
[2020-02-22] MEDS: APIXABAN 5 MG TABLET PO SCH (22:37)
[2020-02-22] MEDS: LATANOPROST 0.005% OPHTH SOLN 2.5ML BOTTLE OU SCH (22:37)
[2020-02-22] MEDS: FENOFIBRIC ACID 135 MG CAP PO SCH (22:37)
[2020-02-23] MEDS: INSULIN SLIDING SCALE (NOVOLOG) 1 VIAL SQ SCH ×4 (06:14→21:43)
[2020-02-23 07:11] LABS: POTASSIUM 4.7 mmol/L (3.5-5.1)
[2020-02-23 07:20] LABS: BLOOD UREA NITROGEN 27.9 mg/dL (7-18); CALCIUM 9.1 mg/dL (8.5-10.1)
[2020-02-23 07:22] LABS: ALBUMIN 2.6 g/dl (3.4-5.0)
[2020-02-23 07:24] LABS: PHOSPHOROUS 3.3 mg/dL (2.5-4.9)
[2020-02-23 07:26] LABS: BILIRUBIN,TOTAL 0.4 mg/dL (0.2-1); TOT PROT 6.3 g/dl (6.4-8.2)
[2020-02-23 07:30] LABS: BASO % 0.3 % (0-2.0); EOS % 0.2 % (0-4.5); HEMATOCRIT 41.8 % (32.4-45.2); HEMOGLOBIN 13.6 GM/dL (10.7-15.3); MCH 30.8 pg (25.7-33.7); MCHC 32.6 g/dl (32.0-36.0); MEAN CELL VOLUME 94.4 fl (80-96); MEAN PLT VOLUME 8.6 fl (7.5-11.1); MONO % 9.6 % (3.8-10.2); NEUT % 77.9 % (42.8-82.8); PLATELET COUNT 403 K/MM3 (134-434); RBC 4.43 M/mm3 (3.60-5.2); RDW 14.6 % (11.6-15.6); WHITE BLOOD COUNT 10.7 K/mm3 (4.0-10.0)
[2020-02-23] MEDS ORDERED: PT OWN MED DRAWER 7, Y5N ONE (09:56)
[2020-02-23] MEDS ORDERED: DEXTROSE 5%-WATER - 50 ML IVPB ONE (09:56)
[2020-02-23] MEDS ORDERED: cefTRIAXone SODIUM 1 GM VIAL ONE (09:56)
[2020-02-23] MEDS: CEFTRIAXONE 1 GM in DEXTROSE 5%-WATER - 50 ML IVPB SCH (10:01)
[2020-02-23] MEDS: PANTOPRAZOLE SODIUM 40 MG VIAL IVPUSH SCH (10:05)
[2020-02-23] MEDS: GABAPENTIN 300 MG CAPSULE PO SCH ×2 (10:11→21:31)
[2020-02-23] MEDS: ZINC SULFATE 220 MG CAPSULE (FP) PO SCH (10:12)
[2020-02-23] MEDS: APIXABAN 5 MG TABLET PO SCH ×2 (10:12→21:31)
[2020-02-23] MEDS: CHOLECALCIFEROL (VIT D3) 1,000 UNIT (25 MCG) TABLET PO SCH (10:12)
[2020-02-23] MEDS: ASCORBIC ACID 500 MG TABLET (FP) PO SCH ×2 (10:12→21:31)
[2020-02-23] MEDS: DULoxetine HCL 30 MG CAPSULE.DR PO SCH (10:13)
[2020-02-23] MEDS: CLOPIDOGREL BISULFATE 75 MG TABLET (FP) PO SCH (10:13)
[2020-02-23] MEDS: MULTIVITAMINS (DAILY MVI) TABLET (FP) PO SCH (10:14)
[2020-02-23] MEDS: ASPIRIN COATED 81 MG TABLET.EC PO SCH (10:14)
[2020-02-23] MEDS: DEXAMETHASONE SOD PHOSPHATE 4 MG/1 ML VIAL IVPUSH SCH (10:14)
[2020-02-23] MEDS: DORZOLAMIDE 2% HCL OPHTHALMIC SOLUTION 10 ML BOTTLE OU SCH ×2 (10:15→22:03)
[2020-02-23] MEDS: TIMOLOL 0.5% OPHTHALMIC SOL 5 ML BOTTLE OU SCH ×2 (10:15→22:03)
[2020-02-23] MEDS: AZITHROMYCIN IVPB 250 MG in DEXTROSE 5%-WATER - 250 ML IVPB SCH (10:33)
[2020-02-23] MEDS: TIOTROPIUM BROMIDE 2.5 MCG (SPIRIVA) RESPIMAT INHALER IH SCH (10:48)
[2020-02-23] MEDS: REMDESIVIR 100 MG in SODIUM CHLORIDE 230 ML IVPB SCH (15:58)
[2020-02-23] MEDS: FENOFIBRIC ACID 135 MG CAP PO SCH (21:31)
[2020-02-23] MEDS: LATANOPROST 0.005% OPHTH SOLN 2.5ML BOTTLE OU SCH (22:03)
[2020-02-24] MEDS: INSULIN SLIDING SCALE (NOVOLOG) 1 VIAL SQ SCH ×4 (07:02→21:09)
[2020-02-24 07:33] LABS: BASO % 0.9 % (0-2.0); EOS % 0.8 % (0-4.5); HEMATOCRIT 41.5 % (32.4-45.2); HEMOGLOBIN 13.3 GM/dL (10.7-15.3); LYMPH % 14.7 % (8-40); MCH 30.3 pg (25.7-33.7); MCHC 32.1 g/dl (32.0-36.0); MEAN CELL VOLUME 94.3 fl (80-96); MEAN PLT VOLUME 8.2 fl (7.5-11.1); MONO % 8.3 % (3.8-10.2); NEUT % 75.3 % (42.8-82.8); PLATELET COUNT 396 K/MM3 (134-434); RDW 14.6 % (11.6-15.6); WHITE BLOOD COUNT 11.5 K/mm3 (4.0-10.0)
[2020-02-24 07:43] LABS: POTASSIUM 4.5 mmol/L (3.5-5.1)
[2020-02-24 07:55] LABS: ALBUMIN 2.5 g/dl (3.4-5.0); BLOOD UREA NITROGEN 27.6 mg/dL (7-18)
[2020-02-24 07:56] LABS: BILIRUBIN,TOTAL 0.5 mg/dL (0.2-1); CALCIUM 8.8 mg/dL (8.5-10.1); MAGNESIUM 1.9 mg/dL (1.8-2.4); TOT PROT 6.1 g/dl (6.4-8.2)
[2020-02-24] MEDS ORDERED: cefTRIAXone SODIUM 1 GM VIAL ONE (10:37)
[2020-02-24] MEDS ORDERED: DEXTROSE 5%-WATER - 50 ML IVPB ONE (10:37)
[2020-02-24] MEDS ORDERED: PT OWN MED DRAWER 7, Y5N ONE (10:39)
[2020-02-24] MEDS: DULoxetine HCL 30 MG CAPSULE.DR PO SCH (11:11)
[2020-02-24] MEDS: DEXAMETHASONE SOD PHOSPHATE 4 MG/1 ML VIAL IVPUSH SCH (11:11)
[2020-02-24] MEDS: APIXABAN 5 MG TABLET PO SCH ×2 (11:12→21:05)
[2020-02-24] MEDS: ASPIRIN COATED 81 MG TABLET.EC PO SCH (11:12)
[2020-02-24] MEDS: CLOPIDOGREL BISULFATE 75 MG TABLET (FP) PO SCH (11:12)
[2020-02-24] MEDS: ZINC SULFATE 220 MG CAPSULE (FP) PO SCH (11:12)
[2020-02-24] MEDS: GABAPENTIN 300 MG CAPSULE PO SCH ×2 (11:12→21:04)
[2020-02-24] MEDS: CHOLECALCIFEROL (VIT D3) 1,000 UNIT (25 MCG) TABLET PO SCH (11:13)
[2020-02-24] MEDS: CEFTRIAXONE 1 GM in DEXTROSE 5%-WATER - 50 ML IVPB SCH (11:13)
[2020-02-24] MEDS: ASCORBIC ACID 500 MG TABLET (FP) PO SCH ×2 (11:13→21:05)
[2020-02-24] MEDS: MULTIVITAMINS (DAILY MVI) TABLET (FP) PO SCH (11:13)
[2020-02-24] MEDS: PANTOPRAZOLE SODIUM 40 MG VIAL IVPUSH SCH (11:13)
[2020-02-24] MEDS: AZITHROMYCIN IVPB 250 MG in DEXTROSE 5%-WATER - 250 ML IVPB SCH (11:14)
[2020-02-24] MEDS: TIMOLOL 0.5% OPHTHALMIC SOL 5 ML BOTTLE OU SCH ×2 (12:00→21:08)
[2020-02-24] MEDS: DORZOLAMIDE 2% HCL OPHTHALMIC SOLUTION 10 ML BOTTLE OU SCH ×2 (12:00→21:12)
[2020-02-24] MEDS: TIOTROPIUM BROMIDE 2.5 MCG (SPIRIVA) RESPIMAT INHALER IH SCH (12:00)
[2020-02-24] MEDS: REMDESIVIR 100 MG in SODIUM CHLORIDE 230 ML IVPB SCH (15:42)
[2020-02-24] MEDS: ACETAMINOPHEN 500 MG TABLET (FP) PO PRN (19:59)
[2020-02-24] MEDS: FENOFIBRIC ACID 135 MG CAP PO SCH (21:04)
[2020-02-24] MEDS: LOSARTAN POTASSIUM 50 MG TABLET PO SCH (21:05)
[2020-02-24] MEDS: LATANOPROST 0.005% OPHTH SOLN 2.5ML BOTTLE OU SCH (21:12)
[2020-02-24] MEDS: DOXAZOSIN MESYLATE 4 MG TABLET PO SCH (21:19)
[2020-02-25] MEDS: INSULIN SLIDING SCALE (NOVOLOG) 1 VIAL SQ SCH ×4 (06:26→21:40)
[2020-02-25 08:20] LABS: BASO % 0.5 % (0-2.0); EOS % 0.9 % (0-4.5); HEMATOCRIT 43.4 % (32.4-45.2); HEMOGLOBIN 14.1 GM/dL (10.7-15.3); MCH 30.6 pg (25.7-33.7); MCHC 32.4 g/dl (32.0-36.0); MEAN CELL VOLUME 94.3 fl (80-96); MEAN PLT VOLUME 8.5 fl (7.5-11.1); MONO % 8.6 % (3.8-10.2); PLATELET COUNT 366 K/MM3 (134-434); RDW 14.3 % (11.6-15.6); WHITE BLOOD COUNT 10.8 K/mm3 (4.0-10.0)
[2020-02-25 08:34] LABS: POTASSIUM 4.5 mmol/L (3.5-5.1)
[2020-02-25 08:50] LABS: ALBUMIN 2.6 g/dl (3.4-5.0); BLOOD UREA NITROGEN 26.2 mg/dL (7-18); CALCIUM 9.4 mg/dL (8.5-10.1); MAGNESIUM 1.9 mg/dL (1.8-2.4)
[2020-02-25] MEDS ORDERED: DEXTROSE 5%-WATER - 50 ML IVPB ONE (08:53)
[2020-02-25] MEDS ORDERED: PT OWN MED DRAWER 7, Y5N ONE (08:53)
[2020-02-25] MEDS ORDERED: cefTRIAXone SODIUM 1 GM VIAL ONE (08:53)
[2020-02-25 08:54] LABS: CREATININE 0.9 mg/dL (0.55-1.3)
[2020-02-25 08:55] LABS: BILIRUBIN,TOTAL 0.4 mg/dL (0.2-1); TOT PROT 6.1 g/dl (6.4-8.2)
[2020-02-25] MEDS: CEFTRIAXONE 1 GM in DEXTROSE 5%-WATER - 50 ML IVPB SCH (09:43)
[2020-02-25] MEDS: PANTOPRAZOLE SODIUM 40 MG VIAL IVPUSH SCH (09:43)
[2020-02-25] MEDS: CLOPIDOGREL BISULFATE 75 MG TABLET (FP) PO SCH (09:44)
[2020-02-25] MEDS: DULoxetine HCL 30 MG CAPSULE.DR PO SCH (09:44)
[2020-02-25] MEDS: DEXAMETHASONE SOD PHOSPHATE 4 MG/1 ML VIAL IVPUSH SCH (09:44)
[2020-02-25] MEDS: GABAPENTIN 300 MG CAPSULE PO SCH ×2 (09:44→21:29)
[2020-02-25] MEDS: APIXABAN 5 MG TABLET PO SCH ×2 (09:44→21:31)
[2020-02-25] MEDS: ASCORBIC ACID 500 MG TABLET (FP) PO SCH ×2 (09:44→21:29)
[2020-02-25] MEDS: CHOLECALCIFEROL (VIT D3) 1,000 UNIT (25 MCG) TABLET PO SCH (09:44)
[2020-02-25] MEDS: amLODIPine BESYLATE 10 MG TABLET (FP) PO SCH (09:44)
[2020-02-25] MEDS: MULTIVITAMINS (DAILY MVI) TABLET (FP) PO SCH (09:44)
[2020-02-25] MEDS: ASPIRIN COATED 81 MG TABLET.EC PO SCH (09:44)
[2020-02-25] MEDS: ZINC SULFATE 220 MG CAPSULE (FP) PO SCH (09:44)
[2020-02-25] MEDS: DORZOLAMIDE 2% HCL OPHTHALMIC SOLUTION 10 ML BOTTLE OU SCH ×2 (09:45→21:36)
[2020-02-25] MEDS: TIOTROPIUM BROMIDE 2.5 MCG (SPIRIVA) RESPIMAT INHALER IH SCH (09:45)
[2020-02-25] MEDS: TIMOLOL 0.5% OPHTHALMIC SOL 5 ML BOTTLE OU SCH ×2 (09:45→21:39)
[2020-02-25 13:18] VITALS: BMI 47.1
[2020-02-25] MEDS: OXYBUTYNIN CHLORIDE 5 MG TABLET PO SCH ×2 (15:21→21:28)
[2020-02-25] MEDS: SODIUM CHLORIDE NASAL SPRAY 44 ML BOTTLE NS SCH ×2 (15:21→22:33)
[2020-02-25] MEDS: REMDESIVIR 100 MG in SODIUM CHLORIDE 230 ML IVPB SCH (15:21)
[2020-02-25] MEDS: FENOFIBRIC ACID 135 MG CAP PO SCH (21:28)
[2020-02-25] MEDS: LOSARTAN POTASSIUM 50 MG TABLET PO SCH (21:28)
[2020-02-25] MEDS: DOXAZOSIN MESYLATE 4 MG TABLET PO SCH (21:28)
[2020-02-25] MEDS: LATANOPROST 0.005% OPHTH SOLN 2.5ML BOTTLE OU SCH (21:36)
[2020-02-26] MEDS: INSULIN SLIDING SCALE (NOVOLOG) 1 VIAL SQ SCH ×4 (06:27→22:08)
[2020-02-26 08:14] LABS: BASO % 0.7 % (0-2.0); EOS % 1.2 % (0-4.5); HEMATOCRIT 42.4 % (32.4-45.2); HEMOGLOBIN 13.5 GM/dL (10.7-15.3); LYMPH % 15.1 % (8-40); MCH 29.7 pg (25.7-33.7); MCHC 31.8 g/dl (32.0-36.0); MEAN CELL VOLUME 93.5 fl (80-96); MEAN PLT VOLUME 8.4 fl (7.5-11.1); MONO % 7.7 % (3.8-10.2); NEUT % 75.3 % (42.8-82.8); PLATELET COUNT 376 K/MM3 (134-434); RBC 4.53 M/mm3 (3.60-5.2); RDW 14.3 % (11.6-15.6); WHITE BLOOD COUNT 12.1 K/mm3 (4.0-10.0)
[2020-02-26 08:18] LABS: POTASSIUM 4.6 mmol/L (3.5-5.1)
[2020-02-26 08:20] LABS: ALBUMIN 2.6 g/dl (3.4-5.0); BLOOD UREA NITROGEN 30.2 mg/dL (7-18); CALCIUM 9.6 mg/dL (8.5-10.1)
[2020-02-26 08:21] LABS: MAGNESIUM 1.8 mg/dL (1.8-2.4)
[2020-02-26 08:23] LABS: CREATININE 0.9 mg/dL (0.55-1.3)
[2020-02-26 08:25] LABS: BILIRUBIN,TOTAL 0.3 mg/dL (0.2-1)
[2020-02-26] MEDS ORDERED: DEXTROSE 5%-WATER - 50 ML IVPB ONE (09:50)
[2020-02-26] MEDS ORDERED: cefTRIAXone SODIUM 1 GM VIAL ONE (09:50)
[2020-02-26] MEDS: CEFTRIAXONE 1 GM in DEXTROSE 5%-WATER - 50 ML IVPB SCH (09:58)
[2020-02-26] MEDS: MULTIVITAMINS (DAILY MVI) TABLET (FP) PO SCH (09:58)
[2020-02-26] MEDS: ASCORBIC ACID 500 MG TABLET (FP) PO SCH ×2 (09:58→22:05)
[2020-02-26] MEDS: PANTOPRAZOLE SODIUM 40 MG VIAL IVPUSH SCH (09:58)
[2020-02-26] MEDS: ZINC SULFATE 220 MG CAPSULE (FP) PO SCH (09:59)
[2020-02-26] MEDS: DEXAMETHASONE SOD PHOSPHATE 4 MG/1 ML VIAL IVPUSH SCH (09:59)
[2020-02-26] MEDS: CHOLECALCIFEROL (VIT D3) 1,000 UNIT (25 MCG) TABLET PO SCH (09:59)
[2020-02-26] MEDS: APIXABAN 5 MG TABLET PO SCH ×2 (09:59→22:04)
[2020-02-26] MEDS: CLOPIDOGREL BISULFATE 75 MG TABLET (FP) PO SCH (09:59)
[2020-02-26] MEDS: GABAPENTIN 300 MG CAPSULE PO SCH ×2 (09:59→22:04)
[2020-02-26] MEDS: amLODIPine BESYLATE 10 MG TABLET (FP) PO SCH (09:59)
[2020-02-26] MEDS: DULoxetine HCL 30 MG CAPSULE.DR PO SCH (09:59)
[2020-02-26] MEDS: TIOTROPIUM BROMIDE 2.5 MCG (SPIRIVA) RESPIMAT INHALER IH SCH (10:00)
[2020-02-26] MEDS: TIMOLOL 0.5% OPHTHALMIC SOL 5 ML BOTTLE OU SCH ×2 (10:00→22:09)
[2020-02-26] MEDS: ASPIRIN COATED 81 MG TABLET.EC PO SCH (10:00)
[2020-02-26] MEDS: SODIUM CHLORIDE NASAL SPRAY 44 ML BOTTLE NS SCH ×2 (10:00→22:09)
[2020-02-26] MEDS: DORZOLAMIDE 2% HCL OPHTHALMIC SOLUTION 10 ML BOTTLE OU SCH ×2 (10:01→22:09)
[2020-02-26] MEDS ORDERED: PT OWN MED DRAWER 7, Y5N ONE ×2 (10:02→22:12)
[2020-02-26] MEDS: OXYBUTYNIN CHLORIDE 5 MG TABLET PO SCH ×2 (10:02→22:12)
[2020-02-26] MEDS: REMDESIVIR 100 MG in SODIUM CHLORIDE 230 ML IVPB SCH (15:00)
[2020-02-26] MEDS: LOSARTAN POTASSIUM 50 MG TABLET PO SCH (22:05)
[2020-02-26] MEDS: DOXAZOSIN MESYLATE 4 MG TABLET PO SCH (22:05)
[2020-02-26] MEDS: FENOFIBRIC ACID 135 MG CAP PO SCH (22:05)
[2020-02-26] MEDS: LATANOPROST 0.005% OPHTH SOLN 2.5ML BOTTLE OU SCH (22:09)
[2020-02-27] MEDS: INSULIN SLIDING SCALE (NOVOLOG) 1 VIAL SQ SCH ×4 (07:01→21:33)
[2020-02-27 07:49] LABS: BASO % 0.2 % (0-2.0); EOS % 0.8 % (0-4.5); HEMATOCRIT 42.6 % (32.4-45.2); HEMOGLOBIN 13.5 GM/dL (10.7-15.3); LYMPH % 10.5 % (8-40); MCH 29.8 pg (25.7-33.7); MCHC 31.6 g/dl (32.0-36.0); MEAN CELL VOLUME 94.2 fl (80-96); MEAN PLT VOLUME 8.1 fl (7.5-11.1); MONO % 6.8 % (3.8-10.2); NEUT % 81.7 % (42.8-82.8); PLATELET COUNT 350 K/MM3 (134-434); RBC 4.52 M/mm3 (3.60-5.2); RDW 14.5 % (11.6-15.6); WHITE BLOOD COUNT 12.4 K/mm3 (4.0-10.0)
[2020-02-27 08:11] LABS: POTASSIUM 4.4 mmol/L (3.5-5.1)
[2020-02-27 08:16] LABS: CALCIUM 9.8 mg/dL (8.5-10.1)
[2020-02-27 08:17] LABS: ALBUMIN 2.7 g/dl (3.4-5.0); BLOOD UREA NITROGEN 35.5 mg/dL (7-18)
[2020-02-27 08:21] LABS: BILIRUBIN,TOTAL 0.9 mg/dL (0.2-1)
[2020-02-27] MEDS ORDERED: cefTRIAXone SODIUM 1 GM VIAL ONE (09:10)
[2020-02-27] MEDS ORDERED: DEXTROSE 5%-WATER - 50 ML IVPB ONE (09:10)
[2020-02-27] MEDS: DEXAMETHASONE SOD PHOSPHATE 4 MG/1 ML VIAL IVPUSH SCH (09:49)
[2020-02-27] MEDS: GABAPENTIN 300 MG CAPSULE PO SCH ×2 (09:49→21:10)
[2020-02-27] MEDS: ASCORBIC ACID 500 MG TABLET (FP) PO SCH ×2 (09:49→21:10)
[2020-02-27] MEDS: CEFTRIAXONE 1 GM in DEXTROSE 5%-WATER - 50 ML IVPB SCH (09:49)
[2020-02-27] MEDS: CHOLECALCIFEROL (VIT D3) 1,000 UNIT (25 MCG) TABLET PO SCH (09:49)
[2020-02-27] MEDS: PANTOPRAZOLE SODIUM 40 MG VIAL IVPUSH SCH (09:49)
[2020-02-27] MEDS: ASPIRIN COATED 81 MG TABLET.EC PO SCH (09:50)
[2020-02-27] MEDS: amLODIPine BESYLATE 10 MG TABLET (FP) PO SCH (09:50)
[2020-02-27] MEDS: MULTIVITAMINS (DAILY MVI) TABLET (FP) PO SCH (09:50)
[2020-02-27] MEDS: APIXABAN 5 MG TABLET PO SCH ×2 (09:50→21:10)
[2020-02-27] MEDS: CLOPIDOGREL BISULFATE 75 MG TABLET (FP) PO SCH (09:50)
[2020-02-27] MEDS: SODIUM CHLORIDE NASAL SPRAY 44 ML BOTTLE NS SCH ×2 (09:50→21:32)
[2020-02-27] MEDS: DULoxetine HCL 30 MG CAPSULE.DR PO SCH (09:50)
[2020-02-27] MEDS: ZINC SULFATE 220 MG CAPSULE (FP) PO SCH (09:50)
[2020-02-27] MEDS: TIOTROPIUM BROMIDE 2.5 MCG (SPIRIVA) RESPIMAT INHALER IH SCH (09:50)
[2020-02-27] MEDS: TIMOLOL 0.5% OPHTHALMIC SOL 5 ML BOTTLE OU SCH ×2 (09:54→21:32)
[2020-02-27] MEDS: OXYBUTYNIN CHLORIDE 5 MG TABLET PO SCH ×2 (09:54→21:13)
[2020-02-27] MEDS: DORZOLAMIDE 2% HCL OPHTHALMIC SOLUTION 10 ML BOTTLE OU SCH ×2 (09:55→21:33)
[2020-02-27 10:46] LABS: ANISOCYTOSIS 1+; MACROCYTOSIS 0; PLATELET ESTIMATE NORMAL
[2020-02-27] MEDS: DOXAZOSIN MESYLATE 4 MG TABLET PO SCH (21:10)
[2020-02-27] MEDS: FENOFIBRIC ACID 135 MG CAP PO SCH (21:10)
[2020-02-27] MEDS: LOSARTAN POTASSIUM 50 MG TABLET PO SCH (21:11)
[2020-02-27] MEDS ORDERED: PT OWN MED DRAWER 7, Y5N ONE (21:13)
[2020-02-27] MEDS: LATANOPROST 0.005% OPHTH SOLN 2.5ML BOTTLE OU SCH (21:33)
[2020-02-28] MEDS: INSULIN SLIDING SCALE (NOVOLOG) 1 VIAL SQ SCH ×4 (06:17→22:36)
[2020-02-28 06:39] LABS: BASO % 1.9 % (0-2.0); EOS % 0.3 % (0-4.5); HEMATOCRIT 44.1 % (32.4-45.2); HEMOGLOBIN 14.3 GM/dL (10.7-15.3); LYMPH % 9.4 % (8-40); MCH 30.4 pg (25.7-33.7); MCHC 32.5 g/dl (32.0-36.0); MEAN CELL VOLUME 93.6 fl (80-96); MEAN PLT VOLUME 8.8 fl (7.5-11.1); MONO % 7.3 % (3.8-10.2); NEUT % 81.1 % (42.8-82.8); PLATELET COUNT 381 K/MM3 (134-434); RBC 4.71 M/mm3 (3.60-5.2); RDW 14.4 % (11.6-15.6); WHITE BLOOD COUNT 10.9 K/mm3 (4.0-10.0)
[2020-02-28 06:44] LABS: POTASSIUM 4.8 mmol/L (3.5-5.1)
[2020-02-28 06:50] LABS: CREATININE 1.1 mg/dL (0.55-1.3)
[2020-02-28 06:51] LABS: BILIRUBIN,TOTAL 0.5 mg/dL (0.2-1); TOT PROT 6.6 g/dl (6.4-8.2)
[2020-02-28] MEDS ORDERED: cefTRIAXone SODIUM 1 GM VIAL ONE (10:31)
[2020-02-28] MEDS ORDERED: PT OWN MED DRAWER 7, Y5N ONE (10:31)
[2020-02-28] MEDS ORDERED: DEXTROSE 5%-WATER - 50 ML IVPB ONE (10:31)
[2020-02-28] MEDS: PANTOPRAZOLE SODIUM 40 MG VIAL IVPUSH SCH (10:34)
[2020-02-28] MEDS: DEXAMETHASONE SOD PHOSPHATE 4 MG/1 ML VIAL IVPUSH SCH (10:34)
[2020-02-28] MEDS: CEFTRIAXONE 1 GM in DEXTROSE 5%-WATER - 50 ML IVPB SCH (10:34)
[2020-02-28] MEDS: DULoxetine HCL 30 MG CAPSULE.DR PO SCH (10:35)
[2020-02-28] MEDS: OXYBUTYNIN CHLORIDE 5 MG TABLET PO SCH ×2 (10:35→22:41)
[2020-02-28] MEDS: GABAPENTIN 300 MG CAPSULE PO SCH ×2 (10:35→22:33)
[2020-02-28] MEDS: amLODIPine BESYLATE 10 MG TABLET (FP) PO SCH (10:36)
[2020-02-28] MEDS: CHOLECALCIFEROL (VIT D3) 1,000 UNIT (25 MCG) TABLET PO SCH (10:36)
[2020-02-28] MEDS: APIXABAN 5 MG TABLET PO SCH ×2 (10:36→22:32)
[2020-02-28] MEDS: ASPIRIN COATED 81 MG TABLET.EC PO SCH (10:36)
[2020-02-28] MEDS: SODIUM CHLORIDE NASAL SPRAY 44 ML BOTTLE NS SCH ×2 (10:36→22:36)
[2020-02-28] MEDS: MULTIVITAMINS (DAILY MVI) TABLET (FP) PO SCH (10:36)
[2020-02-28] MEDS: ASCORBIC ACID 500 MG TABLET (FP) PO SCH ×2 (10:36→22:32)
[2020-02-28] MEDS: ZINC SULFATE 220 MG CAPSULE (FP) PO SCH (10:36)
[2020-02-28] MEDS: TIOTROPIUM BROMIDE 2.5 MCG (SPIRIVA) RESPIMAT INHALER IH SCH (10:37)
[2020-02-28] MEDS: TIMOLOL 0.5% OPHTHALMIC SOL 5 ML BOTTLE OU SCH ×2 (10:37→22:41)
[2020-02-28] MEDS: DORZOLAMIDE 2% HCL OPHTHALMIC SOLUTION 10 ML BOTTLE OU SCH ×2 (10:37→22:41)
[2020-02-28] MEDS: ACETAMINOPHEN 500 MG TABLET (FP) PO PRN ×2 (15:34→22:32)
[2020-02-28] MEDS: DOXAZOSIN MESYLATE 4 MG TABLET PO SCH (22:32)
[2020-02-28] MEDS: FENOFIBRIC ACID 135 MG CAP PO SCH (22:32)
[2020-02-28] MEDS: LOSARTAN POTASSIUM 50 MG TABLET PO SCH (22:34)
[2020-02-28] MEDS: LATANOPROST 0.005% OPHTH SOLN 2.5ML BOTTLE OU SCH (22:41)
[2020-02-29] MEDS: INSULIN SLIDING SCALE (NOVOLOG) 1 VIAL SQ SCH ×2 (06:21→12:47)
[2020-02-29 07:51] LABS: POTASSIUM 4.5 mmol/L (3.5-5.1)
[2020-02-29 07:56] LABS: BASO % 0.4 % (0-2.0); EOS % 0.7 % (0-4.5); HEMOGLOBIN 13.5 GM/dL (10.7-15.3); LYMPH % 12.4 % (8-40); MCH 30.5 pg (25.7-33.7); MEAN CELL VOLUME 92.7 fl (80-96); MEAN PLT VOLUME 9.1 fl (7.5-11.1); MONO % 9.4 % (3.8-10.2); NEUT % 77.1 % (42.8-82.8); PLATELET COUNT 347 K/MM3 (134-434); RBC 4.43 M/mm3 (3.60-5.2); RDW 14.3 % (11.6-15.6); WHITE BLOOD COUNT 10.4 K/mm3 (4.0-10.0)
[2020-02-29 07:59] LABS: ALBUMIN 2.9 g/dl (3.4-5.0); BLOOD UREA NITROGEN 45.3 mg/dL (7-18); CALCIUM 9.6 mg/dL (8.5-10.1)
[2020-02-29 08:03] LABS: CREATININE 1.1 mg/dL (0.55-1.3)
[2020-02-29 08:04] LABS: BILIRUBIN,TOTAL 0.5 mg/dL (0.2-1); TOT PROT 6.2 g/dl (6.4-8.2)
[2020-02-29 09:29] VITALS: BP 134/76; PULSE 62
[2020-02-29] MEDS ORDERED: PT OWN MED DRAWER 7, Y5N ONE (09:38)
[2020-02-29] MEDS ORDERED: DEXTROSE 5%-WATER - 50 ML IVPB ONE (09:38)
[2020-02-29] MEDS ORDERED: cefTRIAXone SODIUM 1 GM VIAL ONE (09:38)
[2020-02-29] MEDS: OXYBUTYNIN CHLORIDE 5 MG TABLET PO SCH (10:23)
[2020-02-29] MEDS: APIXABAN 5 MG TABLET PO SCH (10:23)
[2020-02-29] MEDS: DEXAMETHASONE SOD PHOSPHATE 4 MG/1 ML VIAL IVPUSH SCH (10:23)
[2020-02-29] MEDS: ASPIRIN COATED 81 MG TABLET.EC PO SCH (10:23)
[2020-02-29] MEDS: GABAPENTIN 300 MG CAPSULE PO SCH (10:23)
[2020-02-29] MEDS: DULoxetine HCL 30 MG CAPSULE.DR PO SCH (10:23)
[2020-02-29] MEDS: PANTOPRAZOLE SODIUM 40 MG VIAL IVPUSH SCH (10:24)
[2020-02-29] MEDS: CEFTRIAXONE 1 GM in DEXTROSE 5%-WATER - 50 ML IVPB SCH (10:24)
[2020-02-29] MEDS: ZINC SULFATE 220 MG CAPSULE (FP) PO SCH (10:24)
[2020-02-29] MEDS: TIOTROPIUM BROMIDE 2.5 MCG (SPIRIVA) RESPIMAT INHALER IH SCH (10:24)
[2020-02-29] MEDS: amLODIPine BESYLATE 10 MG TABLET (FP) PO SCH (10:24)
[2020-02-29] MEDS: SODIUM CHLORIDE NASAL SPRAY 44 ML BOTTLE NS SCH (10:24)
[2020-02-29] MEDS: ASCORBIC ACID 500 MG TABLET (FP) PO SCH (10:25)
[2020-02-29] MEDS: CHOLECALCIFEROL (VIT D3) 1,000 UNIT (25 MCG) TABLET PO SCH (10:25)
[2020-02-29] MEDS: TIMOLOL 0.5% OPHTHALMIC SOL 5 ML BOTTLE OU SCH (10:25)
[2020-02-29] MEDS: MULTIVITAMINS (DAILY MVI) TABLET (FP) PO SCH (10:25)
[2020-02-29] MEDS: DORZOLAMIDE 2% HCL OPHTHALMIC SOLUTION 10 ML BOTTLE OU SCH (10:25)
[2020-02-29 13:43] VITALS: TEMP 97.8
== END 2020-02-29 14:18 | disposition home health service (06) | DRG 177 ==
LOC: SUPCPDRO 16:41 → JER 16:41 → JERBED 20:04 → JICU 23:01 → J4W 02-23 12:08
PROVIDERS: ADMIT Internal Medicine; ATTEND Nurse Practitioner Family
PROC: 8E0ZXY6 Isolation (ICD-10-PCS; 2020-02-20)
PROC: XW13325 Transfusion of Convalescent Plasma (Nonautologous) into Peripheral Vein, Percutaneous Approach, New Technology Group 5 (ICD-10-PCS; principal; 2020-02-22)
PROC: XW033E5 Introduction of Remdesivir Anti-infective into Peripheral Vein, Percutaneous Approach, New Technology Group 5 (ICD-10-PCS; 2020-02-22)
DX: U07.1 COVID-19 (principal); J12.89 Other viral pneumonia; J96.01 Acute respiratory failure with hypoxia; G93.41 Metabolic encephalopathy; I50.30 Unspecified diastolic (congestive) heart failure; E87.2 Acidosis; Z68.42 Body mass index [BMI] 45.0-49.9, adult; J44.9 Chronic obstructive pulmonary disease, unspecified; F32.9 Major depressive disorder, single episode, unspecified; K42.9 Umbilical hernia without obstruction or gangrene; E78.5 Hyperlipidemia, unspecified; I10 Essential (primary) hypertension; E66.01 Morbid (severe) obesity due to excess calories; E11.40 Type 2 diabetes mellitus with diabetic neuropathy, unspecified; I11.0 Hypertensive heart disease with heart failure; I34.0 Nonrheumatic mitral (valve) insufficiency; I25.119 Atherosclerotic heart disease of native coronary artery with unspecified angina pectoris; D72.829 Elevated white blood cell count, unspecified; R19.7 Diarrhea, unspecified; G47.33 Obstructive sleep apnea (adult) (pediatric); I65.29 Occlusion and stenosis of unspecified carotid artery
CPT/HCPCS: 36415; 36430; 36600; 71045-TC-FY; 80053; 81003; 82248; 82550; 82728; 82803; 82962; 83605; 83615; 83735; 83880; 84100; 84484; 85025; 85027; 85379; 85610; 85651; 85730; 86140; 86850; 86900; 86901; 87040; 87086; 93005; 93010; 97116-GP; 97162-GP; 99291; C9399; C9803; P9017; U0003

== ENCOUNTER 2021-12-25 16:48 | Emergency (ER) | payer OTHER ==
[2021-12-25 17:06] VITALS: RESP 20; TEMP 98.2; BMI 47.1
[2021-12-25 19:08] LABS: BASO % 0.8 % (0-2.0); EOS % 2.8 % (0-4.5); HEMATOCRIT 40.1 % (32.4-45.2); HEMOGLOBIN 13.2 GM/dL (10.7-15.3); LYMPH % 22.3 % (8-40); MCH 31.3 pg (25.7-33.7); MEAN PLT VOLUME 8.4 fl (7.5-11.1); MONO % 9.5 % (3.8-10.2); NEUT % 64.6 % (42.8-82.8); PLATELET COUNT 277 10^3/uL (134-434); RBC 4.22 M/mm3 (3.60-5.2); RDW 13.8 % (11.6-15.6); WHITE BLOOD COUNT 10.5 K/mm3 (4.0-10.0)
[2021-12-25 19:28] LABS: CALCIUM 10.1 mg/dL (8.5-10.1)
[2021-12-25 19:32] LABS: CREATININE 1.5 mg/dL (0.55-1.3)
[2021-12-25 19:34] LABS: BILIRUBIN,TOTAL 0.7 mg/dL (0.2-1); TOT PROT 6.8 g/dl (6.4-8.2)
[2021-12-25 19:40] LABS: ACTIVATED PTT 30.3 SECONDS (25.2-36.5); INR 1.1 (0.83-1.09); PROTHROMBIN TIME (PATIENT) 12.7 SEC (9.7-13.0)
[2021-12-25 19:53] VITALS: BP 134/60; PULSE 62
== END 2021-12-25 20:06 | disposition home or self-care (01) ==
LOC: JERFT 16:48 → JER 16:48 → JERFT 20:06
DX: S20.211A Contusion of right front wall of thorax, initial encounter (principal); R51.9 Headache, unspecified; V49.40XA Driver injured in collision with unspecified motor vehicles in traffic accident, initial encounter; Z79.01 Long term (current) use of anticoagulants
CPT/HCPCS: 36415; 70450-TC; 71250-TC; 80053; 85025; 85610; 85730; 99285-25

== ENCOUNTER 2022-06-26 14:24 | Inpatient (IN) | payer OTHER ==
[2022-06-26 15:08] VITALS: BMI 47.4
[2022-06-26] MEDS ORDERED: methylPREDNISolone NA SUCC 125 MG/2 ML VIAL IVPUSH ONE (15:21)
[2022-06-26] MEDS ORDERED: ACETAMINOPHEN 1000 MG/100 ML BAG IVPB ONE (15:21)
[2022-06-26] MEDS ORDERED: CEFTRIAXONE 1,000 MG in DEXTROSE 5%-WATER - 50 ML IVPB ONE ×2 (15:44→16:10)
[2022-06-26] MEDS ORDERED: ALBUTEROL SO4 2.5/IPRATROPIUM 0.5 INH SOL 3 ML VIAL.NEB. NEB ONE (15:57)
[2022-06-26] MEDS ORDERED: ACETAMINOPHEN INJECTION 100 ML IVPB ONE (15:57)
[2022-06-26] MEDS ORDERED: cefTRIAXone SODIUM 1 GM VIAL ONE (15:57)
[2022-06-26] MEDS ORDERED: methylPREDNISolone NA SUCC 125 MG/2 ML VIAL ONE ×2 (15:58→16:15)
[2022-06-26] MEDS: ALBUTEROL SO4 2.5/IPRATROPIUM 0.5 INH SOL 3 ML VIAL.NEB. NEB SCH ×4 (16:10→16:32)
[2022-06-26] MEDS ORDERED: AZITHROMYCIN IVPB 500 MG in DEXTROSE 5%-WATER - 250 ML IVPB ONE (16:10)
[2022-06-26] MEDS ORDERED: CEFTRIAXONE 2 GM/100 ML BAG IVPB ONE (16:18)
[2022-06-26] MEDS ORDERED: AZITHROMYCIN IVPB 500 MG/250 ML BAG IVPB ONE (16:18)
[2022-06-26] MEDS ORDERED: ALBUTEROL SO4 2.5/IPRATROPIUM 0.5 INH SOL 3 ML VIAL.NEB. NEB SCH (16:30)
[2022-06-26] MEDS ORDERED: MAGNESIUM SULF 50% (8.12 MEQ/2 ML-1 GM VIAL) IVPB ONE (16:40)
[2022-06-26] MEDS ORDERED: MAGNESIUM SULFATE IN WATER 2 GM/50 ML IVPB IVPB ONE (16:41)
[2022-06-26] MEDS ORDERED: ALBUTEROL SO4 0.083% IH SOL 2.5 MG/3 ML VIAL.NEB. NEB ONE (16:41)
[2022-06-26 16:49] LABS: VENOUS BASE EXCESS -1.3 mmol/L (-2-2); VENOUS PCO2 45.6 mmHg (38-52); VENOUS PH 7.349 (7.310-7.410)
[2022-06-26] MEDS ORDERED: ALBUTEROL SO4 0.083% IH SOL 2.5 MG/3 ML VIAL.NEB. NEB SCH (17:30)
[2022-06-26 17:35] LABS: POTASSIUM 4.9 mmol/L (3.5-5.1)
[2022-06-26 17:36] LABS: CALCIUM 10.1 mg/dL (8.5-10.1)
[2022-06-26 17:37] LABS: ALBUMIN 3.6 g/dl (3.4-5.0); BLOOD UREA NITROGEN 29.4 mg/dL (7-18)
[2022-06-26 17:39] LABS: HEMATOCRIT 39.7 % (32.4-45.2); HEMOGLOBIN 13.1 GM/dL (10.7-15.3); MCH 30.6 pg (25.7-33.7); MCHC 33.1 g/dl (32.0-36.0); MEAN CELL VOLUME 92.6 fl (80-96); MEAN PLT VOLUME 8.9 fl (7.5-11.1); PLATELET COUNT 283 10^3/uL (134-434); RBC 4.28 M/mm3 (3.60-5.2); WHITE BLOOD COUNT 23.9 K/mm3 (4.0-10.0)
[2022-06-26 17:40] LABS: CREATININE 1.4 mg/dL (0.55-1.3)
[2022-06-26 17:42] LABS: BILIRUBIN,TOTAL 0.6 mg/dL (0.2-1); TOT PROT 6.8 g/dl (6.4-8.2)
[2022-06-26 18:04] LABS: LACTIC ACID 2.9 mmol/L (0.4-2.0)
[2022-06-26] MEDS ORDERED: SODIUM CHLORIDE 0.9% 500 ML INFUS.BAG IV ONE (18:33)
[2022-06-26 20:32] LABS: ANISOCYTOSIS 1+; MACROCYTOSIS 0
[2022-06-26] MEDS ORDERED: methylPREDNISolone NA SUCC 40 MG/1 ML VIAL IVPUSH SCH (21:45)
[2022-06-26] MEDS: BUDESONIDE/FORMETEROL FUMARATE 80/4.5 mcg INHALER IH SCH (22:24)
[2022-06-26] MEDS: HEPARIN NA (PORCINE) 5,000 UNITS/ML 1ML VIAL SQ SCH (22:24)
[2022-06-26] MEDS: INSULIN SLIDING SCALE (NOVOLOG) 1 VIAL SQ SCH (22:25)
[2022-06-27] MEDS: MELATONIN 5 MG TABLETS PO SCH ×2 (01:05→22:36)
[2022-06-27] MEDS: NYSTATIN 100,000 UNIT/GM TOPICAL CREAM 15 GM TUBE TP SCH ×3 (01:23→22:37)
[2022-06-27] MEDS: INSULIN SLIDING SCALE (NOVOLOG) 1 VIAL SQ SCH ×4 (06:23→22:36)
[2022-06-27] MEDS: HEPARIN NA (PORCINE) 5,000 UNITS/ML 1ML VIAL SQ SCH ×3 (06:23→14:47)
[2022-06-27] MEDS: ALBUTEROL SO4 2.5/IPRATROPIUM 0.5 INH SOL 3 ML VIAL.NEB. NEB SCH ×4 (07:20→20:35)
[2022-06-27] MEDS: methylPREDNISolone NA SUCC 40 MG/1 ML VIAL IVPUSH SCH ×2 (09:20→18:06)
[2022-06-27 09:49] LABS: HEMATOCRIT 38.3 % (32.4-45.2); HEMOGLOBIN 12.7 GM/dL (10.7-15.3); MCH 30.7 pg (25.7-33.7); MCHC 33.1 g/dl (32.0-36.0); MEAN CELL VOLUME 92.9 fl (80-96); MEAN PLT VOLUME 9.2 fl (7.5-11.1); PLATELET COUNT 261 10^3/uL (134-434); RBC 4.12 M/mm3 (3.60-5.2); RDW 14.1 % (11.6-15.6); WHITE BLOOD COUNT 24.6 K/mm3 (4.0-10.0)
[2022-06-27 10:45] LABS: LACTIC ACID 2.5 mmol/L (0.4-2.0)
[2022-06-27] MEDS: BUDESONIDE/FORMETEROL FUMARATE 80/4.5 mcg INHALER IH SCH ×2 (11:06→22:39)
[2022-06-27] MEDS: CEFTRIAXONE 1 GM in DEXTROSE 5%-WATER - 50 ML IVPB SCH (11:21)
[2022-06-27 11:35] LABS: N-TERMINAL BNP 1406.4 pg/ml (5-125)
[2022-06-27] MEDS ORDERED: INSULIN (NOVOLOG) ASPART 100 UNITS/ML 10ML VIAL ONE ×2 (11:45→16:14)
[2022-06-27] MEDS: AZITHROMYCIN IVPB 500 MG/250 ML BAG IVPB SCH (11:56)
[2022-06-27] MEDS ORDERED: ACETAMINOPHEN 1000 MG/100 ML BAG IVPB PRN (17:19)
[2022-06-27] MEDS ORDERED: MELATONIN 5 MG TABLETS PO SCH (22:00)
[2022-06-27] MEDS: RIVAROXABAN 2.5 MG TABLET PO SCH (22:36)
[2022-06-27] MEDS: INSULIN (LEVEMIR) 100 UNITS/ML UNITS SQ SCH (22:37)
[2022-06-28] MEDS: INSULIN SLIDING SCALE (NOVOLOG) 1 VIAL SQ SCH ×4 (06:24→22:23)
[2022-06-28] MEDS: ALBUTEROL SO4 2.5/IPRATROPIUM 0.5 INH SOL 3 ML VIAL.NEB. NEB SCH ×4 (08:35→20:12)
[2022-06-28] MEDS ORDERED: amLODIPine BESYLATE 10 MG TABLET (FP) PO SCH (10:00)
[2022-06-28] MEDS ORDERED: PATIENT'S OWN MEDICATION (NON-FORMULARY) (Vibegron [Gemtesa] 75 MG Tablet) PO SCH (10:00)
[2022-06-28] MEDS ORDERED: DULoxetine HCL 60 MG CAPSULE.DR PO SCH (10:00)
[2022-06-28] MEDS ORDERED: PATIENT'S OWN MEDICATION (NON-FORMULARY) (Cyclosporine [Restasis] 1 EACH Droperette) OU SCH (10:00)
[2022-06-28 10:08] LABS: BASO % 0.1 % (0-2.0); HEMATOCRIT 39.2 % (32.4-45.2); LYMPH % 5.8 % (8-40); MCH 31.1 pg (25.7-33.7); MCHC 33.3 g/dl (32.0-36.0); MEAN CELL VOLUME 93.6 fl (80-96); MEAN PLT VOLUME 9.2 fl (7.5-11.1); MONO % 5.6 % (3.8-10.2); NEUT % 88.5 % (42.8-82.8); PLATELET COUNT 314 10^3/uL (134-434); RBC 4.18 M/mm3 (3.60-5.2); RDW 14.2 % (11.6-15.6); WHITE BLOOD COUNT 19.2 K/mm3 (4.0-10.0)
[2022-06-28] MEDS: CEFTRIAXONE 1 GM in DEXTROSE 5%-WATER - 50 ML IVPB SCH (10:23)
[2022-06-28] MEDS: SOLIFENACIN SUCCINATE 5 MG TAB PO SCH (10:24)
[2022-06-28] MEDS: GABAPENTIN 300 MG CAPSULE PO SCH ×2 (10:27→22:14)
[2022-06-28] MEDS: DULoxetine HCL 30 MG CAPSULE.DR PO SCH (10:28)
[2022-06-28] MEDS: NYSTATIN 100,000 UNIT/GM TOPICAL CREAM 15 GM TUBE TP SCH ×2 (10:28→22:15)
[2022-06-28] MEDS: methylPREDNISolone NA SUCC 40 MG/1 ML VIAL IVPUSH SCH (10:29)
[2022-06-28] MEDS: RIVAROXABAN 2.5 MG TABLET PO SCH ×2 (10:32→22:14)
[2022-06-28 10:33] LABS: CALCIUM 10.4 mg/dL (8.5-10.1)
[2022-06-28 10:34] LABS: ALBUMIN 3.4 g/dl (3.4-5.0); BLOOD UREA NITROGEN 34.8 mg/dL (7-18); MAGNESIUM 2.1 mg/dL (1.8-2.4)
[2022-06-28] MEDS: BUDESONIDE/FORMETEROL FUMARATE 80/4.5 mcg INHALER IH SCH ×2 (10:35→22:16)
[2022-06-28 10:37] LABS: CREATININE 1.3 mg/dL (0.55-1.3); PHOSPHOROUS 2.9 mg/dL (2.5-4.9)
[2022-06-28 10:38] LABS: BILIRUBIN,TOTAL 0.5 mg/dL (0.2-1); TOT PROT 7.2 g/dl (6.4-8.2)
[2022-06-28] MEDS: INSULIN (LEVEMIR) 100 UNITS/ML UNITS SQ SCH ×2 (10:44→22:18)
[2022-06-28] MEDS ORDERED: FUROSEMIDE 40 MG/4 ML INJECTABLE VIAL IVPUSH ONE (11:00)
[2022-06-28] MEDS: AZITHROMYCIN IVPB 500 MG/250 ML BAG IVPB SCH (11:15)
[2022-06-28] MEDS: DORZOLAMIDE 2% HCL OPHTHALMIC SOLUTION 10 ML BOTTLE OU SCH ×3 (11:42→22:15)
[2022-06-28] MEDS: FENOFIBRIC ACID 135 MG CAP PO SCH ×2 (11:42→12:10)
[2022-06-28] MEDS: TIMOLOL 0.5% OPHTHALMIC SOL 5 ML BOTTLE OU SCH ×3 (11:42→22:15)
[2022-06-28] MEDS: FUROSEMIDE 40 MG TABLET (FP) PO SCH (12:09)
[2022-06-28 14:34] LABS: EPI CELLS 16 /uL (0-25.1); HYALINE CASTS 1 /uL (0-3.1); PH,URINE 5.5 (5.0-8.0); URINE APPEARANCE CLEAR; URINE BACTERIA 37 /uL (0-1359); URINE BILIRUBIN NEGATIVE (NEGATIVE); URINE COLOR YELLOW; URINE GLUCOSE (UA) NEGATIVE (NEGATIVE); URINE KETONE NEGATIVE (NEGATIVE); URINE LEUK ESTERASE 1+ (NEGATIVE); URINE NITRITE NEGATIVE (NEGATIVE); URINE PROTEIN NEGATIVE (NEGATIVE); URINE RBC 6 /uL (0-23.9); URINE UROBILINOGEN 0.2 mg/dL (0.2-1.0); URINE WBC 30 /uL (0-25.8)
[2022-06-28] MEDS ORDERED: INSULIN (NOVOLOG) ASPART 100 UNITS/ML 10ML VIAL ONE (16:39)
[2022-06-28] MEDS: MELATONIN 5 MG TABLETS PO SCH (22:14)
[2022-06-29] MEDS: INSULIN SLIDING SCALE (NOVOLOG) 1 VIAL SQ SCH ×4 (06:13→21:15)
[2022-06-29] MEDS: ALBUTEROL SO4 2.5/IPRATROPIUM 0.5 INH SOL 3 ML VIAL.NEB. NEB SCH ×4 (07:45→21:03)
[2022-06-29] MEDS: CEFTRIAXONE 1 GM in DEXTROSE 5%-WATER - 50 ML IVPB SCH (09:57)
[2022-06-29] MEDS: methylPREDNISolone NA SUCC 40 MG/1 ML VIAL IVPUSH SCH (09:58)
[2022-06-29] MEDS: DULoxetine HCL 30 MG CAPSULE.DR PO SCH (09:59)
[2022-06-29] MEDS: GABAPENTIN 300 MG CAPSULE PO SCH ×2 (09:59→21:15)
[2022-06-29] MEDS: FUROSEMIDE 40 MG TABLET (FP) PO SCH (09:59)
[2022-06-29] MEDS: SOLIFENACIN SUCCINATE 5 MG TAB PO SCH (09:59)
[2022-06-29] MEDS: FENOFIBRIC ACID 135 MG CAP PO SCH (10:00)
[2022-06-29] MEDS: RIVAROXABAN 2.5 MG TABLET PO SCH ×2 (10:00→21:15)
[2022-06-29] MEDS: TIMOLOL 0.5% OPHTHALMIC SOL 5 ML BOTTLE OU SCH ×2 (10:15→21:15)
[2022-06-29] MEDS: BUDESONIDE/FORMETEROL FUMARATE 80/4.5 mcg INHALER IH SCH ×2 (10:15→21:15)
[2022-06-29] MEDS: DORZOLAMIDE 2% HCL OPHTHALMIC SOLUTION 10 ML BOTTLE OU SCH ×2 (10:15→21:29)
[2022-06-29] MEDS: NYSTATIN 100,000 UNIT/GM TOPICAL CREAM 15 GM TUBE TP SCH ×2 (10:16→21:16)
[2022-06-29] MEDS: INSULIN (LEVEMIR) 100 UNITS/ML UNITS SQ SCH ×2 (10:37→21:16)
[2022-06-29 10:49] LABS: BASO % 0.3 % (0-2.0); EOS % 0.3 % (0-4.5); HEMATOCRIT 38.2 % (32.4-45.2); HEMOGLOBIN 12.6 GM/dL (10.7-15.3); LYMPH % 12.3 % (8-40); MCH 30.5 pg (25.7-33.7); MCHC 33.1 g/dl (32.0-36.0); MEAN CELL VOLUME 92.2 fl (80-96); MEAN PLT VOLUME 8.6 fl (7.5-11.1); MONO % 9.1 % (3.8-10.2); PLATELET COUNT 333 10^3/uL (134-434); RBC 4.14 M/mm3 (3.60-5.2); RDW 14.4 % (11.6-15.6); WHITE BLOOD COUNT 17.6 K/mm3 (4.0-10.0)
[2022-06-29] MEDS: AZITHROMYCIN IVPB 500 MG/250 ML BAG IVPB SCH (10:51)
[2022-06-29 11:06] LABS: POTASSIUM 4.9 mmol/L (3.5-5.1)
[2022-06-29 11:16] LABS: CALCIUM 10.4 mg/dL (8.5-10.1)
[2022-06-29 11:17] LABS: BLOOD UREA NITROGEN 43.8 mg/dL (7-18)
[2022-06-29 11:18] LABS: ALBUMIN 3.4 g/dl (3.4-5.0)
[2022-06-29 11:19] LABS: CREATININE 1.3 mg/dL (0.55-1.3)
[2022-06-29 11:21] LABS: PHOSPHOROUS 3.1 mg/dL (2.5-4.9)
[2022-06-29 11:22] LABS: BILIRUBIN,TOTAL 0.7 mg/dL (0.2-1); TOT PROT 7.1 g/dl (6.4-8.2)
[2022-06-29] MEDS: MELATONIN 5 MG TABLETS PO SCH (21:16)
[2022-06-30] MEDS ORDERED: ACETAMINOPHEN 325 MG TABLET (FP) PO ONE (04:14)
[2022-06-30] MEDS: INSULIN SLIDING SCALE (NOVOLOG) 1 VIAL SQ SCH ×4 (06:36→22:52)
[2022-06-30] MEDS: ALBUTEROL SO4 2.5/IPRATROPIUM 0.5 INH SOL 3 ML VIAL.NEB. NEB SCH ×4 (08:05→20:21)
[2022-06-30 08:42] LABS: BASO % 0.3 % (0-2.0); EOS % 0.4 % (0-4.5); HEMATOCRIT 39.2 % (32.4-45.2); HEMOGLOBIN 13.6 GM/dL (10.7-15.3); LYMPH % 21.6 % (8-40); MCH 32.1 pg (25.7-33.7); MCHC 34.7 g/dl (32.0-36.0); MEAN CELL VOLUME 92.7 fl (80-96); MEAN PLT VOLUME 9.1 fl (7.5-11.1); MONO % 8.8 % (3.8-10.2); NEUT % 68.9 % (42.8-82.8); PLATELET COUNT 345 10^3/uL (134-434); RBC 4.23 M/mm3 (3.60-5.2); RDW 13.8 % (11.6-15.6); WHITE BLOOD COUNT 13.9 K/mm3 (4.0-10.0)
[2022-06-30 08:53] LABS: POTASSIUM 4.9 mmol/L (3.5-5.1)
[2022-06-30 08:57] LABS: ALBUMIN 3.5 g/dl (3.4-5.0); CALCIUM 10.7 mg/dL (8.5-10.1); MAGNESIUM 2.2 mg/dL (1.8-2.4)
[2022-06-30 09:00] LABS: CREATININE 1.4 mg/dL (0.55-1.3); PHOSPHOROUS 3.8 mg/dL (2.5-4.9)
[2022-06-30 09:01] LABS: BILIRUBIN,TOTAL 0.4 mg/dL (0.2-1); TOT PROT 7.4 g/dl (6.4-8.2)
[2022-06-30] MEDS: DULoxetine HCL 30 MG CAPSULE.DR PO SCH (09:23)
[2022-06-30] MEDS: predniSONE 20 MG TABLET (UD) PO SCH (09:24)
[2022-06-30] MEDS: GABAPENTIN 300 MG CAPSULE PO SCH ×2 (09:24→22:34)
[2022-06-30] MEDS: FUROSEMIDE 40 MG TABLET (FP) PO SCH (09:24)
[2022-06-30] MEDS: BUDESONIDE/FORMETEROL FUMARATE 80/4.5 mcg INHALER IH SCH ×2 (09:25→22:48)
[2022-06-30] MEDS: RIVAROXABAN 2.5 MG TABLET PO SCH ×2 (09:25→22:34)
[2022-06-30] MEDS: SOLIFENACIN SUCCINATE 5 MG TAB PO SCH (09:25)
[2022-06-30] MEDS: FENOFIBRIC ACID 135 MG CAP PO SCH (09:25)
[2022-06-30] MEDS: INSULIN (LEVEMIR) 100 UNITS/ML UNITS SQ SCH ×2 (09:26→22:51)
[2022-06-30] MEDS: TIMOLOL 0.5% OPHTHALMIC SOL 5 ML BOTTLE OU SCH ×2 (09:26→22:37)
[2022-06-30] MEDS: DORZOLAMIDE 2% HCL OPHTHALMIC SOLUTION 10 ML BOTTLE OU SCH ×2 (09:26→22:37)
[2022-06-30] MEDS: NYSTATIN 100,000 UNIT/GM TOPICAL CREAM 15 GM TUBE TP SCH ×2 (09:27→22:35)
[2022-06-30] MEDS ORDERED: INSULIN (NOVOLOG) ASPART 100 UNITS/ML 10ML VIAL ONE ×3 (11:27→22:39)
[2022-06-30] MEDS: CEFTRIAXONE 1 GM in DEXTROSE 5%-WATER - 50 ML IVPB SCH (11:32)
[2022-06-30] MEDS: AZITHROMYCIN IVPB 500 MG/250 ML BAG IVPB SCH (11:33)
[2022-06-30] MEDS ORDERED: INSULIN (LEVEMIR) 100 UNITS/ML UNITS SQ ONE (16:32)
[2022-06-30 21:33] VITALS: RESP 18
[2022-06-30] MEDS: MELATONIN 5 MG TABLETS PO SCH (22:34)
[2022-07-01] MEDS: INSULIN SLIDING SCALE (NOVOLOG) 1 VIAL SQ SCH ×4 (06:55→22:21)
[2022-07-01] MEDS: ALBUTEROL SO4 2.5/IPRATROPIUM 0.5 INH SOL 3 ML VIAL.NEB. NEB SCH ×4 (07:45→19:56)
[2022-07-01 08:29] LABS: BASO % 0.1 % (0-2.0); EOS % 0.7 % (0-4.5); HEMATOCRIT 36.6 % (32.4-45.2); HEMOGLOBIN 12.6 GM/dL (10.7-15.3); LYMPH % 23.6 % (8-40); MCH 31.7 pg (25.7-33.7); MCHC 34.5 g/dl (32.0-36.0); MEAN CELL VOLUME 91.9 fl (80-96); MEAN PLT VOLUME 8.5 fl (7.5-11.1); MONO % 10.3 % (3.8-10.2); NEUT % 65.3 % (42.8-82.8); PLATELET COUNT 300 10^3/uL (134-434); RBC 3.98 M/mm3 (3.60-5.2); RDW 13.8 % (11.6-15.6)
[2022-07-01 08:37] LABS: POTASSIUM 5.4 mmol/L (3.5-5.1)
[2022-07-01 08:41] LABS: CALCIUM 9.9 mg/dL (8.5-10.1)
[2022-07-01 08:43] LABS: ALBUMIN 3.1 g/dl (3.4-5.0)
[2022-07-01 08:45] LABS: CREATININE 1.5 mg/dL (0.55-1.3)
[2022-07-01 08:47] LABS: BILIRUBIN,TOTAL 0.4 mg/dL (0.2-1); TOT PROT 6.5 g/dl (6.4-8.2)
[2022-07-01] MEDS: SOLIFENACIN SUCCINATE 5 MG TAB PO SCH (09:14)
[2022-07-01] MEDS: predniSONE 20 MG TABLET (UD) PO SCH (09:14)
[2022-07-01] MEDS: DULoxetine HCL 30 MG CAPSULE.DR PO SCH (09:14)
[2022-07-01] MEDS: FUROSEMIDE 40 MG TABLET (FP) PO SCH (09:14)
[2022-07-01] MEDS: GABAPENTIN 300 MG CAPSULE PO SCH ×2 (09:15→22:22)
[2022-07-01] MEDS: FENOFIBRIC ACID 135 MG CAP PO SCH (09:15)
[2022-07-01] MEDS: RIVAROXABAN 2.5 MG TABLET PO SCH ×2 (09:15→22:31)
[2022-07-01] MEDS: BUDESONIDE/FORMETEROL FUMARATE 80/4.5 mcg INHALER IH SCH ×2 (09:16→22:22)
[2022-07-01] MEDS: DORZOLAMIDE 2% HCL OPHTHALMIC SOLUTION 10 ML BOTTLE OU SCH ×2 (09:16→22:23)
[2022-07-01] MEDS: TIMOLOL 0.5% OPHTHALMIC SOL 5 ML BOTTLE OU SCH ×3 (09:16→22:23)
[2022-07-01] MEDS: INSULIN (LEVEMIR) 100 UNITS/ML UNITS SQ SCH ×2 (09:18→22:20)
[2022-07-01] MEDS: NYSTATIN 100,000 UNIT/GM TOPICAL CREAM 15 GM TUBE TP SCH ×3 (09:22→22:41)
[2022-07-01] MEDS: CEFTRIAXONE 1 GM in DEXTROSE 5%-WATER - 50 ML IVPB SCH (10:33)
[2022-07-01] MEDS: AZITHROMYCIN IVPB 500 MG/250 ML BAG IVPB SCH (11:08)
[2022-07-01] MEDS: AZITHROMYCIN 250 MG TABLET PO SCH (11:09)
[2022-07-01] MEDS ORDERED: HYDROCORTISONE 1% TOPICAL OINT 30 GM TUBE TP ONE (12:15)
[2022-07-01] MEDS ORDERED: INSULIN (LEVEMIR) 100 UNITS/ML UNITS SQ ONE (22:19)
[2022-07-01] MEDS: MELATONIN 5 MG TABLETS PO SCH (22:22)
[2022-07-02 05:31] VITALS: TEMP 97.8
[2022-07-02] MEDS: INSULIN SLIDING SCALE (NOVOLOG) 1 VIAL SQ SCH ×2 (06:55→11:49)
[2022-07-02] MEDS: FUROSEMIDE 40 MG TABLET (FP) PO SCH (09:14)
[2022-07-02] MEDS: GABAPENTIN 300 MG CAPSULE PO SCH (09:14)
[2022-07-02] MEDS: DULoxetine HCL 30 MG CAPSULE.DR PO SCH (09:14)
[2022-07-02] MEDS: CEFTRIAXONE 1 GM in DEXTROSE 5%-WATER - 50 ML IVPB SCH (09:14)
[2022-07-02] MEDS: SOLIFENACIN SUCCINATE 5 MG TAB PO SCH (09:14)
[2022-07-02] MEDS: predniSONE 20 MG TABLET (UD) PO SCH (09:14)
[2022-07-02] MEDS: FENOFIBRIC ACID 135 MG CAP PO SCH (09:15)
[2022-07-02] MEDS: RIVAROXABAN 2.5 MG TABLET PO SCH (09:15)
[2022-07-02] MEDS: INSULIN (LEVEMIR) 100 UNITS/ML UNITS SQ SCH (09:15)
[2022-07-02] MEDS: TIMOLOL 0.5% OPHTHALMIC SOL 5 ML BOTTLE OU SCH (09:16)
[2022-07-02] MEDS: AZITHROMYCIN 250 MG TABLET PO SCH (09:17)
[2022-07-02] MEDS: BUDESONIDE/FORMETEROL FUMARATE 80/4.5 mcg INHALER IH SCH (09:18)
[2022-07-02] MEDS: DORZOLAMIDE 2% HCL OPHTHALMIC SOLUTION 10 ML BOTTLE OU SCH (09:18)
[2022-07-02] MEDS: NYSTATIN 100,000 UNIT/GM TOPICAL CREAM 15 GM TUBE TP SCH (09:19)
[2022-07-02 10:31] VITALS: BP 141/60; PULSE 68
[2022-07-02 10:43] LABS: BASO % 0.4 % (0-2.0); EOS % 1.2 % (0-4.5); HEMATOCRIT 38.5 % (32.4-45.2); HEMOGLOBIN 13.2 GM/dL (10.7-15.3); LYMPH % 27.2 % (8-40); MCHC 34.2 g/dl (32.0-36.0); MEAN CELL VOLUME 90.6 fl (80-96); MEAN PLT VOLUME 9.1 fl (7.5-11.1); MONO % 7.8 % (3.8-10.2); NEUT % 63.4 % (42.8-82.8); PLATELET COUNT 360 10^3/uL (134-434); RBC 4.25 M/mm3 (3.60-5.2); RDW 13.4 % (11.6-15.6); WHITE BLOOD COUNT 12.8 K/mm3 (4.0-10.0)
[2022-07-02 10:56] LABS: POTASSIUM 4.4 mmol/L (3.5-5.1)
[2022-07-02 10:59] LABS: CALCIUM 9.7 mg/dL (8.5-10.1)
[2022-07-02 11:00] LABS: ALBUMIN 3.2 g/dl (3.4-5.0); MAGNESIUM 1.9 mg/dL (1.8-2.4)
[2022-07-02 11:03] LABS: CREATININE 1.4 mg/dL (0.55-1.3); PHOSPHOROUS 3.7 mg/dL (2.5-4.9)
[2022-07-02 11:04] LABS: BILIRUBIN,TOTAL 0.4 mg/dL (0.2-1); TOT PROT 6.7 g/dl (6.4-8.2)
[2022-07-02] MEDS ORDERED: INSULIN (NOVOLOG) ASPART 100 UNITS/ML 10ML VIAL ONE (11:47)
== END 2022-07-02 14:30 | disposition home or self-care (01) | DRG 871 ==
LOC: JER 14:24 → JERBED 16:11 → J6S 21:08
PROVIDERS: ADMIT Internal Medicine; ATTEND Internal Medicine
DX: A41.9 Sepsis, unspecified organism (principal); J18.9 Pneumonia, unspecified organism; J96.01 Acute respiratory failure with hypoxia; I50.30 Unspecified diastolic (congestive) heart failure; J44.1 Chronic obstructive pulmonary disease with (acute) exacerbation; Z68.42 Body mass index [BMI] 45.0-49.9, adult; J45.909 Unspecified asthma, uncomplicated; I10 Essential (primary) hypertension; E78.5 Hyperlipidemia, unspecified; E11.65 Type 2 diabetes mellitus with hyperglycemia; I25.10 Atherosclerotic heart disease of native coronary artery without angina pectoris; N18.9 Chronic kidney disease, unspecified; E66.01 Morbid (severe) obesity due to excess calories
CPT/HCPCS: 0241U-QW; 36415; 71045-TC-FY; 76775-TC; 80053; 81003; 82550; 82553; 82803; 82962; 83036; 83605; 83735; 83880; 83970; 84100; 84439; 84484; 85025; 85027; 86850; 86900; 86901; 87040; 87086; 93005; 93010; 93306-TC; 94010; 94640; 94660; 99285-25; J1644

== ENCOUNTER 2023-07-25 19:14 | Inpatient (IN) | payer OTHER ==
[2023-07-25 19:19] VITALS: BMI 47.4
[2023-07-25] MEDS ORDERED: ACETAMINOPHEN INJECTION 100 ML IVPB ONE (20:28)
[2023-07-25] MEDS ORDERED: KETOROLAC TROMETHAMINE 15 MG/ML VIAL ONE (20:28)
[2023-07-25 20:34] LABS: BASO % 0.6 % (0-2.0); EOS % 2.6 % (0-4.5); HEMATOCRIT 38.3 % (32.4-45.2); HEMOGLOBIN 12.9 GM/dL (10.7-15.3); MCH 32.1 pg (25.7-33.7); MCHC 33.6 g/dl (32.0-36.0); MEAN CELL VOLUME 95.5 fl (80-96); MEAN PLT VOLUME 8.6 fl (7.5-11.1); MONO % 9.6 % (3.8-10.2); NEUT % 65.2 % (42.8-82.8); PLATELET COUNT 278 10^3/uL (134-434); RBC 4.02 M/mm3 (3.60-5.2); RDW 14.5 % (11.6-15.6); WHITE BLOOD COUNT 9.2 K/mm3 (4.0-10.0)
[2023-07-25 20:41] LABS: INR 1.01 (0.83-1.09); PROTHROMBIN TIME (PATIENT) 11.4 SEC (9.7-13.0)
[2023-07-25 20:44] LABS: ACTIVATED PTT 26.7 SECONDS (25.2-36.5)
[2023-07-25] MEDS: KETOROLAC TROMETHAMINE 15 MG/ML VIAL IVPUSH ONE (20:46)
[2023-07-25] MEDS: ACETAMINOPHEN 1000 MG/100 ML BAG IVPB ONE (20:47)
[2023-07-25] MEDS: morphine CARPU-JECT 4 MG/1 ML DISP.SYRIN IVPUSH ONE (20:49)
[2023-07-25 20:57] LABS: POTASSIUM 5.1 mmol/L (3.5-5.1)
[2023-07-25 20:59] LABS: ALBUMIN 3.5 g/dl (3.4-5.0); CALCIUM 9.5 mg/dL (8.5-10.1)
[2023-07-25 21:00] LABS: MAGNESIUM 1.6 mg/dL (1.8-2.4)
[2023-07-25 21:02] LABS: CREATININE 1.8 mg/dL (0.55-1.3)
[2023-07-25 21:04] LABS: BILIRUBIN,TOTAL 0.6 mg/dL (0.2-1); TOT PROT 6.5 g/dl (6.4-8.2)
[2023-07-25] MEDS ORDERED: MAGNESIUM SULFATE IN WATER 2 GM/50 ML IVPB IVPB ONE (21:41)
[2023-07-25] MEDS: SODIUM CHLORIDE 0.9% 500 ML INFUS.BAG IV ONE (22:10)
[2023-07-25] MEDS: MAGNESIUM SULFATE IN WATER 2 GM/50 ML IVPB IVPB ONE (22:10)
[2023-07-25 23:42] LABS: BLOOD UREA NITROGEN 35.4 mg/dL (7-18); CALCIUM 9.3 mg/dL (8.5-10.1)
[2023-07-25] MEDS ORDERED: CEFTRIAXONE 1 GM/50 ML BAG ONE (23:43)
[2023-07-25 23:46] LABS: CREATININE 1.8 mg/dL (0.55-1.3)
[2023-07-25] MEDS ORDERED: AZITHROMYCIN IVPB 500 MG/250 ML BAG IVPB ONE (23:51)
[2023-07-25 23:54] LABS: LACTIC ACID 2.2 mmol/L (0.4-2.0)
[2023-07-26] MEDS: AZITHROMYCIN IVPB 500 MG in DEXTROSE 5%-WATER - 250 ML IVPB ONE (00:03)
[2023-07-26] MEDS ORDERED: ONDANSETRON 4 MG/2 ML VIAL ONE (01:09)
[2023-07-26] MEDS: ONDANSETRON 4 MG/2 ML VIAL IVPUSH PRN (01:17)
[2023-07-26] MEDS: ALBUTEROL SO4 2.5/IPRATROPIUM 0.5 INH SOL 3 ML VIAL.NEB. NEB SCH (03:10)
[2023-07-26] MEDS ORDERED: ALBUTEROL SO4 HFA INHALER IH PRN (03:38)
[2023-07-26] MEDS: ACETAMINOPHEN 325 MG TABLET (FP) PO SCH (05:42)
[2023-07-26 08:13] LABS: HEMATOCRIT 38.9 % (32.4-45.2); HEMOGLOBIN 12.4 GM/dL (10.7-15.3); MCH 30.9 pg (25.7-33.7); MCHC 31.8 g/dl (32.0-36.0); MEAN CELL VOLUME 97.3 fl (80-96); MEAN PLT VOLUME 8.4 fl (7.5-11.1); PLATELET COUNT 237 10^3/uL (134-434); WHITE BLOOD COUNT 7.9 K/mm3 (4.0-10.0)
[2023-07-26 08:38] LABS: POTASSIUM 4.7 mmol/L (3.5-5.1)
[2023-07-26 08:45] LABS: CALCIUM 8.9 mg/dL (8.5-10.1)
[2023-07-26 08:47] LABS: ALBUMIN 3.4 g/dl (3.4-5.0)
[2023-07-26 08:50] LABS: BILIRUBIN,TOTAL 0.5 mg/dL (0.2-1); CREATININE 1.6 mg/dL (0.55-1.3); PHOSPHOROUS 4.6 mg/dL (2.5-4.9)
[2023-07-26 08:52] LABS: N-TERMINAL BNP 582.3 pg/ml (5-125); TOT PROT 6.4 g/dl (6.4-8.2)
[2023-07-26] MEDS ORDERED: PATIENT'S OWN MEDICATION (NON-FORMULARY) (Cyclosporine [Restasis] 1 EACH Droperette) OU SCH (10:00)
[2023-07-26] MEDS ORDERED: FUROSEMIDE 40 MG TABLET (FP) PO SCH (10:00)
[2023-07-26] MEDS ORDERED: CEFTRIAXONE 1 GM in DEXTROSE 5%-WATER - 50 ML IVPB SCH (10:00)
[2023-07-26] MEDS ORDERED: PATIENT'S OWN MEDICATION (NON-FORMULARY) (Dorzolamide Hcl/Timolol Maleat [Dorzolamide-Timo SCH (10:00)
[2023-07-26 11:48] LABS: EPI CELLS 6 /uL (0-25.1); HYALINE CASTS 0 /uL (0-3.1); URINE APPEARANCE CLEAR; URINE BACTERIA 408 /uL (0-1359); URINE BILIRUBIN NEGATIVE (NEGATIVE); URINE COLOR YELLOW; URINE GLUCOSE (UA) NEGATIVE (NEGATIVE); URINE KETONE NEGATIVE (NEGATIVE); URINE LEUK ESTERASE 2+ (NEGATIVE); URINE NITRITE NEGATIVE (NEGATIVE); URINE PROTEIN NEGATIVE (NEGATIVE); URINE RBC 8 /uL (0-23.9); URINE UROBILINOGEN 0.2 mg/dL (0.2-1.0); URINE WBC 137 /uL (0-25.8)
[2023-07-26] MEDS: INSULIN ASPART SLIDING SCALE (NOVOLOG) 1 VIAL SQ SCH (13:41)
[2023-07-26] MEDS: LIDOCAINE 5% TOPICAL PATCH TP SCH (13:43)
[2023-07-26] MEDS: GABAPENTIN 300 MG CAPSULE PO SCH (13:43)
[2023-07-26] MEDS: FUROSEMIDE 40 MG/4 ML INJECTABLE VIAL IVPUSH SCH (13:44)
[2023-07-26] MEDS: DULoxetine HCL 30 MG CAPSULE.DR PO SCH (13:44)
[2023-07-26] MEDS: amLODIPine BESYLATE 10 MG TABLET (FP) PO SCH (13:45)
[2023-07-26] MEDS: LOSARTAN POTASSIUM 50 MG TABLET PO SCH (13:45)
[2023-07-26] MEDS: TIOTROPIUM BROMIDE 2.5 MCG (SPIRIVA) RESPIMAT INHALER IH SCH (13:46)
[2023-07-26] MEDS: TIMOLOL 0.5% OPHTHALMIC SOL 5 ML BOTTLE OU SCH (13:46)
[2023-07-26] MEDS: DORZOLAMIDE 2% HCL OPHTHALMIC SOLUTION 10 ML BOTTLE OU SCH (13:47)
[2023-07-26] MEDS: RIVAROXABAN 2.5 MG TABLET PO SCH (16:23)
[2023-07-26] MEDS ORDERED: AZITHROMYCIN IVPB 500 MG in DEXTROSE 5%-WATER - 250 ML IVPB SCH (22:00)
[2023-07-26] MEDS: DOXAZOSIN MESYLATE 4 MG TABLET PO SCH (23:00)
[2023-07-26] MEDS: BUDESONIDE/FORMETEROL FUMARATE 160/4.5 mcg INHALER IH SCH (23:01)
[2023-07-27] MEDS: LIDOCAINE PATCH REMOVAL MC SCH (06:14)
[2023-07-27] MEDS: ASPIRIN 81 MG CHEWABLE TABLETS PO SCH (10:41)
[2023-07-27] MEDS: FENOFIBRIC ACID 135 MG CAP PO SCH (10:41)
[2023-07-27] MEDS: ALLOPURINOL 100 MG TABLET (FP) PO SCH (10:44)
[2023-07-28] MEDS: ACETAMINOPHEN 325 MG TABLET (FP) PO PRN (08:47)
[2023-07-29 09:19] LABS: ALBUMIN 3.4 g/dl (3.4-5.0); BILIRUBIN,TOTAL 0.3 mg/dL (0.2-1); CALCIUM 9.9 mg/dL (8.5-10.1); CREATININE 1.6 mg/dL (0.55-1.3); POTASSIUM 4.4 mmol/L (3.5-5.1); TOT PROT 6.3 g/dl (6.4-8.2)
[2023-07-29] MEDS: amLODIPine BESYLATE 10 MG TABLET (FP) PO SCH (10:12)
[2023-07-29 14:14] VITALS: BP 120/61; PULSE 75; RESP 20; TEMP 98.5
== END 2023-07-29 14:23 | disposition home or self-care (01) | DRG 291 ==
LOC: JER 19:14 → JERBED 22:39 → J5S 07-26 01:37 → OBSVTOIN 07-26 02:58
PROVIDERS: ADMIT Student in an Organized Health Care Education/Training Program
DX: I13.0 Hypertensive heart and chronic kidney disease with heart failure and stage 1 through stage 4 chronic kidney disease, or unspecified chronic kidney disease (principal); I50.33 Acute on chronic diastolic (congestive) heart failure; N17.9 Acute kidney failure, unspecified; E87.29 Other acidosis; Z68.43 Body mass index [BMI] 50.0-59.9, adult; I25.10 Atherosclerotic heart disease of native coronary artery without angina pectoris; E11.40 Type 2 diabetes mellitus with diabetic neuropathy, unspecified; E66.01 Morbid (severe) obesity due to excess calories; E78.00 Pure hypercholesterolemia, unspecified; G47.33 Obstructive sleep apnea (adult) (pediatric); E11.42 Type 2 diabetes mellitus with diabetic polyneuropathy; N20.0 Calculus of kidney; K57.30 Diverticulosis of large intestine without perforation or abscess without bleeding; I34.0 Nonrheumatic mitral (valve) insufficiency; E11.22 Type 2 diabetes mellitus with diabetic chronic kidney disease; N18.9 Chronic kidney disease, unspecified; J44.9 Chronic obstructive pulmonary disease, unspecified; Z99.81 Dependence on supplemental oxygen
CPT/HCPCS: 36415; 71045-TC-FY; 71250-TC; 74176-TC; 76700-TC; 80048; 80053; 81003; 82248; 82436; 82550; 82570; 82962; 83605; 83690; 83735; 83880; 84100; 84300; 84439; 84443; 84484; 84540; 84550; 85025; 85027; 85610; 85730; 86850; 86900; 86901; 87040; 93005; 93010; 93306-TC; 94640; 97116-GP; 97161-GP; 99285-25; G0378; J0131

== ENCOUNTER 2023-08-21 03:54 | Day surgery (SDC) | payer OTHER ==
[2023-08-15 12:54] VITALS: BMI 47.4
[2023-08-21] MEDS ORDERED: LIDOCAINE HCL 1%, 10 MG/ML (20ML VIAL) ONE (09:09)
[2023-08-21] MEDS ORDERED: GENTAMICIN SO4 80 MG/2 ML VIAL ONE (09:16)
[2023-08-21] MEDS: ceFAZolin 2 GRAM PREMIX BAG IVPB ONE (09:57)
[2023-08-21] MEDS ORDERED: PROPOFOL 20 ML ONE (09:58)
[2023-08-21] MEDS ORDERED: MIDAZOLAM HCL 2 MG/2 ML SINGLE DOSE VIAL ONE (09:58)
[2023-08-21] MEDS ORDERED: SUCCINYLCHOLINE CHLORIDE 200 MG/10 ML SYRINGE ONE (09:58)
[2023-08-21] MEDS ORDERED: FENTANYL CITRATE/PF 50 MCG/ML VIAL ONE (09:58)
[2023-08-21] MEDS ORDERED: DEXTROSE 5%-0.45% SALINE 1,000 ML IV SCH (10:00)
[2023-08-21] MEDS: GENTAMICIN SO4 80 MG/2 ML VIAL IVPB ONE (10:12)
[2023-08-21] MEDS: LIDOCAINE HCL 1%, 10 MG/ML (20ML VIAL) INF ONE (10:12)
[2023-08-21] MEDS ORDERED: ONDANSETRON 4 MG/2 ML VIAL IVPUSH PRN (10:57)
[2023-08-21] MEDS ORDERED: LACTATED RINGERS SOLUTION 1,000 ML IV SCH (11:00)
[2023-08-21 13:42] VITALS: BP 116/50; PULSE 66; RESP 18; TEMP 97.8
== END 2023-08-21 13:50 | disposition home or self-care (01) ==
LOC: JASU-SURG 03:54
PROVIDERS: ATTEND Urology
PROC: 01HY3MZ Insertion of Neurostimulator Lead into Peripheral Nerve, Percutaneous Approach (ICD-10-PCS; principal; 2023-08-21 09:30)
DX: N39.41 Urge incontinence (principal); R35.0 Frequency of micturition
CPT/HCPCS: 64561; C1897; 76000-TC-FY; 82962; 94760; C1778

== ENCOUNTER 2023-08-29 04:17 | Day surgery (SDC) | payer OTHER ==
[2023-08-28 13:50] VITALS: BMI 47.4
[2023-08-29] MEDS ORDERED: DEXTROSE 5%-0.45% SALINE 1,000 ML IV SCH (13:30)
[2023-08-29] MEDS ORDERED: LIDOCAINE HCL 1%, 10 MG/ML (20ML VIAL) ONE (13:37)
[2023-08-29] MEDS ORDERED: MIDAZOLAM HCL 2 MG/2 ML SINGLE DOSE VIAL ONE ×2 (13:53→14:00)
[2023-08-29] MEDS: ceFAZolin SODIUM 1 GM VIAL IVPB ONE (13:55)
[2023-08-29] MEDS: LIDOCAINE HCL 1%, 10 MG/ML (20ML VIAL) INF ONE (14:02)
[2023-08-29] MEDS ORDERED: ONDANSETRON 4 MG/2 ML VIAL IVPUSH PRN (14:25)
[2023-08-29] MEDS ORDERED: ACETAMINOPHEN 500 MG TABLET (FP) PO ONE (14:30)
[2023-08-29] MEDS ORDERED: LACTATED RINGERS SOLUTION 1,000 ML IV SCH (14:30)
[2023-08-29 15:16] VITALS: RESP 18
[2023-08-29 16:00] VITALS: BP 169/80; PULSE 75; TEMP 97.4
== END 2023-08-29 16:45 | disposition home or self-care (01) ==
LOC: JASU-SURG 04:17
PROVIDERS: ATTEND Urology
PROC: 01HY3MZ Insertion of Neurostimulator Lead into Peripheral Nerve, Percutaneous Approach (ICD-10-PCS; 2023-08-29)
PROC: 0JH70BZ Insertion of Single Array Stimulator Generator into Back Subcutaneous Tissue and Fascia, Open Approach (ICD-10-PCS; principal; 2023-08-29 13:00)
DX: N39.41 Urge incontinence (principal); N32.81 Overactive bladder
CPT/HCPCS: 64590; C1778; L8679; 82962; C1767

== ENCOUNTER 2024-03-31 11:28 | Emergency (ER) | payer OTHER ==
[2024-03-31 11:42] VITALS: BP 127/66; PULSE 74; RESP 18; TEMP 98.2; BMI 48.9
[2024-03-31 13:37] LABS: HEMATOCRIT 43.3 % (32.4-45.2); HEMOGLOBIN 13.9 G/dL (10.7-15.3); MCH 30.7 pg (25.7-33.7); MEAN CELL VOLUME 96.1 fl (80-96); MEAN PLT VOLUME 8.4 fl (7.5-11.1); PLATELET COUNT 283.6 10^3/uL (134-434); RBC 4.51 10^6/uL (3.60-5.2); RDW 13.7 % (11.6-15.6); WHITE BLOOD COUNT 9.5 10^3/uL (4.0-10.8)
[2024-03-31 14:57] LABS: ALBUMIN 4.5 g/dl (3.4-5.0); BILIRUBIN,TOTAL 0.5 mg/dl (0.2-1); CALCIUM 10.4 mg/dl (8.5-10.1); CREATININE 1.4 mg/dl (0.6-1.3); MAGNESIUM 1.7 mg/dL (1.8-2.4); POTASSIUM 4.8 mmol/L (3.5-5.1); TOT PROT 7.4 g/dl (6.4-8.2)
[2024-04-01 14:13] LABS: HIV INTERPRETATION NEGATIVE (NEGATIVE)
== END 2024-03-31 16:24 | disposition home or self-care (01) ==
LOC: FER 11:28
DX: R25.2 Cramp and spasm (principal); R79.9 Abnormal finding of blood chemistry, unspecified; R60.0 Localized edema
CPT/HCPCS: 36415; 71046-TC-FY; 80053; 83735; 85027; 86803; 87389; 93005; 99285-25

== ENCOUNTER 2024-11-17 15:12 | Inpatient (IN) | payer OTHER ==
[2024-11-17] MEDS ORDERED: FUROSEMIDE 40 MG/4 ML INJECTABLE VIAL ONE (16:51)
[2024-11-17] MEDS: FUROSEMIDE 40 MG/4 ML INJECTABLE VIAL IVPUSH ONE (17:12)
[2024-11-17 17:22] LABS: ABSOLUTE IMMATURE GRANULOCYTES 0.04 x10^3/uL (0.0-0.031); BASOPHILS # 0.03 x10^3/uL (0.01-0.08); EOSINOPHIL % 2.6 % (0.7-5.8); EOSINOPHILS # 0.24 x10^3/uL (0.04-0.36); MCHC 31.5 g/dl (32.2-35.5); MEAN CELL VOLUME 99.8 fl (79.4-94.8); MEAN PLT VOLUME 9.9 fl (9.4-12.3); MONOCYTE # 1.05 x10^3/uL (0.24-0.86); MONOCYTE % 11.4 % (4.7-12.5); RDW 13.6 % (12.4-16.6)
[2024-11-17 17:35] LABS: INR 1.17 (0.83-1.09); PROTHROMBIN TIME (PATIENT) 12.7 SEC (9.7-13.0)
[2024-11-17 17:38] LABS: ACTIVATED PTT 31.6 SECONDS (25.2-36.5)
[2024-11-17 18:14] LABS: GLUCOSE,RANDOM 101.0 mg/dL (74-106); TOT PROT 7.1 g/dl (6.4-8.2)
[2024-11-17 18:15] LABS: CO2 28.0 mmol/L (21-32)
[2024-11-17 18:17] LABS: ALK PHOS 49.0 U/L (40-150)
[2024-11-17 18:20] LABS: SGOT/AST 29.0 U/L (5-34); SGPT/ALT 31.0 U/L (0-55)
[2024-11-17 18:29] LABS: CREATININE 1.45 mg/dL (0.55-1.3)
[2024-11-17 18:55] LABS: N-TERMINAL BNP 615.9 pg/mL (0-299.9)
[2024-11-17 19:10] LABS: HIV INTERPRETATION NEGATIVE (NEGATIVE)
[2024-11-17 19:11] LABS: HCV DIAGNOSTIC IN-HOUSE W/RFLX NON-REACTIVE (NONREACTIVE)
[2024-11-17] MEDS: INSULIN ASPART SLIDING SCALE (NOVOLOG) 1 VIAL SQ SCH (23:06)
[2024-11-17] MEDS ORDERED: MAGNESIUM 1GM/D5W - 1 GM/100 ML IVPB IVPB ONE (23:09)
[2024-11-17] MEDS: MAGNESIUM SULF 50% (8.12 MEQ/2 ML-1 GM VIAL) IVPB ONE (23:20)
[2024-11-17] MEDS: FUROSEMIDE 40 MG/4 ML INJECTABLE VIAL IVPUSH SCH (23:20)
[2024-11-18] MEDS ORDERED: HEPARIN NA (PORCINE) 5,000 UNITS/ML 1ML VIAL ONE (01:14)
[2024-11-18] MEDS: HEPARIN NA (PORCINE) 5,000 UNITS/ML 1ML VIAL SQ SCH (01:20)
[2024-11-18] MEDS ORDERED: RIVAROXABAN 2.5 MG TABLET PO SCH (02:00)
[2024-11-18] MEDS ORDERED: PATIENT'S OWN MEDICATION (NON-FORMULARY) (Atropine Sulfate/Pf [Atropine 1% Eye Drops] 1 EA SCH (02:00)
[2024-11-18] MEDS ORDERED: GABAPENTIN 300 MG CAPSULE ONE ×2 (04:13→10:18)
[2024-11-18] MEDS: PATIENT'S OWN MEDICATION (NON-FORMULARY) (Gabapentin [Gabapentin] 600 MG Tablet) PO SCH (04:16)
[2024-11-18] MEDS ORDERED: FUROSEMIDE 40 MG/4 ML INJECTABLE VIAL ONE (06:13)
[2024-11-18] MEDS: FUROSEMIDE 40 MG/4 ML INJECTABLE VIAL IVPUSH SCH (06:44)
[2024-11-18] MEDS: INSULIN ASPART SLIDING SCALE (NOVOLOG) 1 VIAL SQ SCH (07:14)
[2024-11-18 10:04] LABS: MCHC 31.2 g/dl (32.2-35.5); MEAN CELL VOLUME 102.0 fl (79.4-94.8); MEAN PLT VOLUME 10.0 fl (9.4-12.3); RDW 13.7 % (12.4-16.6)
[2024-11-18] MEDS ORDERED: ASPIRIN COATED 81 MG TABLET.EC ONE (10:18)
[2024-11-18 10:32] LABS: GLUCOSE,RANDOM 140.0 mg/dL (74-106); TOT PROT 7.1 g/dl (6.4-8.2)
[2024-11-18 10:33] LABS: CO2 24.0 mmol/L (21-32)
[2024-11-18 10:35] LABS: ALK PHOS 51.0 U/L (40-150)
[2024-11-18] MEDS: GABAPENTIN 300 MG CAPSULE PO SCH (10:35)
[2024-11-18] MEDS: ASPIRIN COATED 81 MG TABLET.EC PO SCH (10:35)
[2024-11-18 10:38] LABS: CREATININE 1.55 mg/dL (0.55-1.3); SGOT/AST 33.0 U/L (5-34); SGPT/ALT 32.0 U/L (0-55)
[2024-11-18] MEDS: RIVAROXABAN 2.5 MG TABLET PO SCH (13:37)
[2024-11-18] MEDS: TIOTROPIUM BROMIDE 2.5 MCG (SPIRIVA) RESPIMAT INHALER IH SCH (13:37)
[2024-11-18] MEDS: DORZOLAMIDE HCL/TIMOLOL OPHTHALMIC SOLUTION 10 ML BOTTLE OU SCH (13:37)
[2024-11-18 14:42] VITALS: BMI 52.2
[2024-11-18] MEDS: ALBUTEROL SO4 2.5/IPRATROPIUM 0.5 INH SOL 3 ML VIAL.NEB. NEB SCH (20:29)
[2024-11-18] MEDS: ACETAMINOPHEN 1000 MG/100 ML BAG IVPB PRN (21:09)
[2024-11-18] MEDS: CEFTRIAXONE 1 GM in DEXTROSE 5%-WATER - 50 ML IVPB SCH (21:12)
[2024-11-18] MEDS: MINERAL OIL/PET HY-PHL TOPICAL OINTMENT 454 GM JAR TP SCH (21:29)
[2024-11-18] MEDS: DOXYCYCLINE INJECTION 100 MG in DEXTROSE 5%-WATER 100 ML IVPB SCH (21:39)
[2024-11-18] MEDS: LATANOPROST 0.005% OPHTH SOLN 2.5ML BOTTLE OD SCH (22:27)
[2024-11-19 07:29] LABS: ABSOLUTE IMMATURE GRANULOCYTES 0.05 x10^3/uL (0.0-0.031); BASOPHILS # 0.03 x10^3/uL (0.01-0.08); EOSINOPHIL % 2.9 % (0.7-5.8); EOSINOPHILS # 0.28 x10^3/uL (0.04-0.36); MCHC 31.5 g/dl (32.2-35.5); MEAN CELL VOLUME 101.4 fl (79.4-94.8); MEAN PLT VOLUME 10.3 fl (9.4-12.3); MONOCYTE # 1.12 x10^3/uL (0.24-0.86); MONOCYTE % 11.5 % (4.7-12.5); RDW 13.6 % (12.4-16.6)
[2024-11-19 08:36] LABS: GLUCOSE,RANDOM 137.0 mg/dL (74-106); TOT PROT 6.4 g/dl (6.4-8.2)
[2024-11-19 08:37] LABS: CO2 28.0 mmol/L (21-32)
[2024-11-19 08:39] LABS: ALK PHOS 49.0 U/L (40-150)
[2024-11-19 08:42] LABS: SGOT/AST 58.0 U/L (5-34); SGPT/ALT 35.0 U/L (0-55)
[2024-11-19 08:47] LABS: CREATININE 1.78 mg/dL (0.55-1.3)
[2024-11-19] MEDS: FUROSEMIDE 40 MG/4 ML INJECTABLE VIAL IVPUSH SCH (16:42)
[2024-11-19] MEDS: PATIENT'S OWN MEDICATION (NON-FORMULARY) (Cyclosporine [Restasis] 1 EACH Droperette) OU SCH (20:05)
[2024-11-19] MEDS: BUDESONIDE/FORMETEROL FUMARATE 160/4.5 mcg INHALER IH SCH (22:50)
[2024-11-20 00:27] LABS: LDL CHOLESTEROL (ONLY SJRH) 117.0 mg/dL (5-100)
[2024-11-20] MEDS: ALBUTEROL SO4 0.083% IH SOL 2.5 MG/3 ML VIAL.NEB. NEB PRN (00:33)
[2024-11-20] MEDS ORDERED: INSULIN ASPART SLIDING SCALE (NOVOLOG) 1 VIAL SQ ONE (06:44)
[2024-11-20 08:37] LABS: ABSOLUTE IMMATURE GRANULOCYTES 0.04 x10^3/uL (0.0-0.031); BASOPHILS # 0.04 x10^3/uL (0.01-0.08); EOSINOPHIL % 3.8 % (0.7-5.8); EOSINOPHILS # 0.36 x10^3/uL (0.04-0.36); MCHC 30.7 g/dl (32.2-35.5); MEAN CELL VOLUME 101.7 fl (79.4-94.8); MEAN PLT VOLUME 10.1 fl (9.4-12.3); MONOCYTE # 1.37 x10^3/uL (0.24-0.86); MONOCYTE % 14.6 % (4.7-12.5); RDW 13.6 % (12.4-16.6)
[2024-11-20 09:33] LABS: GLUCOSE,RANDOM 143.0 mg/dL (74-106); TOT PROT 6.5 g/dl (6.4-8.2)
[2024-11-20 09:35] LABS: CO2 30.0 mmol/L (21-32)
[2024-11-20 09:36] LABS: ALK PHOS 49.0 U/L (40-150)
[2024-11-20 09:39] LABS: SGOT/AST 46.0 U/L (5-34); SGPT/ALT 34.0 U/L (0-55)
[2024-11-20] MEDS: PATIENT'S OWN MEDICATION (NON-FORMULARY) (Vibegron [Gemtesa] 75 MG Tablet) PO SCH (09:46)
[2024-11-20 10:11] LABS: CREATININE 2.03 mg/dL (0.55-1.3)
[2024-11-20] MEDS: MAGNESIUM 1GM/D5W - 1 GM/100 ML IVPB IVPB ONE (10:56)
[2024-11-20] MEDS ORDERED: MAGNESIUM 1GM/D5W 100ML - 100 ML IVPB IVPB ONE (13:00)
[2024-11-20] MEDS: MAGNESIUM 1GM/D5W 100ML - 100 ML IVPB IVPB ONE (15:14)
[2024-11-20] MEDS ORDERED: BISACODYL 5 MG TABLET.DR (FP) PO PRN (15:18)
[2024-11-20] MEDS: amLODIPine BESYLATE 5 MG TABLET (FP) PO SCH (16:22)
[2024-11-20] MEDS: predniSONE 5 MG TABLET (UD) PO SCH (17:01)
[2024-11-20] MEDS: POLYETHYLENE GLYCOL (HEALTHYLAX) 3350 17 GM PACKET PO SCH (17:01)
[2024-11-21 07:24] LABS: ABSOLUTE IMMATURE GRANULOCYTES 0.05 x10^3/uL (0.0-0.031); BASOPHILS # 0.04 x10^3/uL (0.01-0.08); EOSINOPHIL % 3.1 % (0.7-5.8); EOSINOPHILS # 0.30 x10^3/uL (0.04-0.36); MCHC 31.6 g/dl (32.2-35.5); MEAN CELL VOLUME 101.0 fl (79.4-94.8); MEAN PLT VOLUME 10.5 fl (9.4-12.3); MONOCYTE # 1.08 x10^3/uL (0.24-0.86); MONOCYTE % 11.0 % (4.7-12.5); RDW 13.2 % (12.4-16.6)
[2024-11-21 07:50] LABS: GLUCOSE,RANDOM 154.0 mg/dL (74-106); TOT PROT 6.5 g/dl (6.4-8.2)
[2024-11-21 07:51] LABS: CO2 29.0 mmol/L (21-32)
[2024-11-21 07:53] LABS: ALK PHOS 48.0 U/L (40-150)
[2024-11-21 07:55] LABS: SGPT/ALT 32.0 U/L (0-55)
[2024-11-21 08:08] LABS: CREATININE 1.43 mg/dL (0.55-1.3)
[2024-11-21 08:19] LABS: SGOT/AST 36.0 U/L (5-34)
[2024-11-21] MEDS: LIDOCAINE 5% TOPICAL PATCH TP SCH (11:17)
[2024-11-21] MEDS: ACETAMINOPHEN 1000 MG/100 ML BAG IVPB PRN (11:17)
[2024-11-21] MEDS: TIOTROPIUM BROMIDE 2.5 MCG (SPIRIVA) RESPIMAT INHALER IH SCH (12:33)
[2024-11-21] MEDS: LIDOCAINE PATCH REMOVAL MC SCH (22:27)
[2024-11-22 08:11] LABS: MCHC 30.6 g/dl (32.2-35.5); MEAN CELL VOLUME 102.6 fl (79.4-94.8); MEAN PLT VOLUME 10.9 fl (9.4-12.3); RDW 13.2 % (12.4-16.6)
[2024-11-22 09:11] LABS: GLUCOSE,RANDOM 168.0 mg/dL (74-106); TOT PROT 6.7 g/dl (6.4-8.2)
[2024-11-22 09:12] LABS: CO2 25.0 mmol/L (21-32)
[2024-11-22 09:14] LABS: ALK PHOS 48.0 U/L (40-150)
[2024-11-22] MEDS: FUROSEMIDE 40 MG/4 ML INJECTABLE VIAL IVPUSH SCH (09:14)
[2024-11-22 09:16] LABS: SGPT/ALT 26.0 U/L (0-55)
[2024-11-22 09:17] LABS: CREATININE 1.3 mg/dL (0.55-1.3); SGOT/AST 29.0 U/L (5-34)
[2024-11-22] MEDS: ACETAMINOPHEN WITH CODEINE 300MG/30MG TABLET PO PRN (10:42)
[2024-11-22] MEDS: FLUTICASONE PROP 0.05% 16 GM NASAL SPRAY NS SCH (11:16)
[2024-11-22] MEDS: HYDROCORTISONE 1% TOPICAL LOTION 118 ML BOTTLE TP PRN (21:52)
[2024-11-23 08:40] LABS: GLUCOSE,RANDOM 145.0 mg/dL (74-106); TOT PROT 6.5 g/dl (6.4-8.2)
[2024-11-23 08:41] LABS: CO2 31.0 mmol/L (21-32)
[2024-11-23 08:43] LABS: ALK PHOS 52.0 U/L (40-150)
[2024-11-23 08:45] LABS: SGPT/ALT 26.0 U/L (0-55)
[2024-11-23 08:46] LABS: CREATININE 1.09 mg/dL (0.55-1.3); SGOT/AST 26.0 U/L (5-34)
[2024-11-23 08:55] LABS: N-TERMINAL BNP 607.6 pg/mL (0-299.9)
[2024-11-23 15:06] LABS: WEST NILE VIRUS AB SERUM,IGM Negative (Negative)
[2024-11-23] MEDS: MAGNESIUM SULF 50% (8.12 MEQ/2 ML-1 GM VIAL) IVPB ONE (18:16)
[2024-11-23 21:06] LABS: E.chaff HME IgG Negative (Neg:<1:64)
[2024-11-24 08:05] LABS: ABSOLUTE IMMATURE GRANULOCYTES 0.04 x10^3/uL (0.0-0.031); BASOPHILS # 0.06 x10^3/uL (0.01-0.08); EOSINOPHIL % 3.5 % (0.7-5.8); EOSINOPHILS # 0.31 x10^3/uL (0.04-0.36); MCHC 30.9 g/dl (32.2-35.5); MEAN CELL VOLUME 101.7 fl (79.4-94.8); MEAN PLT VOLUME 10.7 fl (9.4-12.3); MONOCYTE # 1.06 x10^3/uL (0.24-0.86); MONOCYTE % 12.1 % (4.7-12.5); RDW 13.2 % (12.4-16.6)
[2024-11-24 08:48] LABS: GLUCOSE,RANDOM 170.0 mg/dL (74-106); TOT PROT 6.5 g/dl (6.4-8.2)
[2024-11-24 08:49] LABS: CO2 31.0 mmol/L (21-32)
[2024-11-24 08:51] LABS: ALK PHOS 49.0 U/L (40-150)
[2024-11-24 08:54] LABS: CREATININE 1.07 mg/dL (0.55-1.3); SGOT/AST 26.0 U/L (5-34); SGPT/ALT 25.0 U/L (0-55)
[2024-11-24] MEDS: FUROSEMIDE 40 MG TABLET (FP) PO SCH (10:13)
[2024-11-25 02:26] VITALS: RESP 18
[2024-11-25 15:44] VITALS: BP 137/75; PULSE 59; TEMP 98.9
== END 2024-11-25 17:22 | disposition home or self-care (01) | DRG 291 ==
LOC: JER 15:12 → JERBED 21:42 → J4S 11-18 13:51
PROVIDERS: ADMIT Internal Medicine; ATTEND Internal Medicine
DX: I13.0 Hypertensive heart and chronic kidney disease with heart failure and stage 1 through stage 4 chronic kidney disease, or unspecified chronic kidney disease (principal); I50.33 Acute on chronic diastolic (congestive) heart failure; J96.21 Acute and chronic respiratory failure with hypoxia; N17.9 Acute kidney failure, unspecified; Z68.43 Body mass index [BMI] 50.0-59.9, adult; E11.22 Type 2 diabetes mellitus with diabetic chronic kidney disease; N18.30 Chronic kidney disease, stage 3 unspecified; N32.81 Overactive bladder; H40.9 Unspecified glaucoma; I34.0 Nonrheumatic mitral (valve) insufficiency; E11.42 Type 2 diabetes mellitus with diabetic polyneuropathy; J44.9 Chronic obstructive pulmonary disease, unspecified; M72.8 Other fibroblastic disorders; K59.00 Constipation, unspecified; M25.512 Pain in left shoulder; L40.50 Arthropathic psoriasis, unspecified; E78.5 Hyperlipidemia, unspecified; E11.621 Type 2 diabetes mellitus with foot ulcer; L97.529 Non-pressure chronic ulcer of other part of left foot with unspecified severity; E66.01 Morbid (severe) obesity due to excess calories; I25.10 Atherosclerotic heart disease of native coronary artery without angina pectoris; Z96.643 Presence of artificial hip joint, bilateral; Z99.81 Dependence on supplemental oxygen
CPT/HCPCS: 36415; 71045-TC-FY; 73030-TC-LT-FY; 74018-TC-FY; 80053; 80061; 82962; 83735; 83880; 84100; 84484; 85025; 85027; 85610; 85730; 86618; 86666; 86788; 86789; 86803; 86850; 86900; 86901; 87389; 93005; 93010; 93306-TC; 93971-TC-RT; 94640; 97116-GP; 99285-25